=== PATIENT | male | born 1945 | race Caucasian/White ===

== ENCOUNTER 2021-07-16 20:54 | Inpatient (IN) | payer MEDICARE, SELFPAY ==
[2021-07-16 20:56] VITALS: BP 117/54; PULSE 72; RESP 18; TEMP 37.1; O2SAT 98; BMI 30.8
--- NOTE | 2021-07-16 21:12 | EDS_ITS ---
HPI HPI - Fall History of Present Illness Chief Complaint: Fall Informant: patient Occured/Mechanism Occurred: Today Pain/Injury Quality of Pain: Aching and Throbbing Current Severity: Moderate Maximum Severity: Moderate Narrative Narrative: Patient presents via EMS after a fall. Patient states he has a slight dropfoot on the left. As he was exiting a building he caught his foot on the edge of a step and fell forward down a couple steps. He believes he hit his chin but denies any injury. He states when he did that he twisted and he is complaining of right hip pain. [facility] Medical History (Updated 07/16/21 @ 23:[address] Radha [place] MD) Asthma Coronary artery disease Diabetes Hypercholesteremia Hypertension Myocardial infarction Pre-diabetes Seizures Home Medications aspirin 81 mg PO DAILY 07/16/21 [History Last Taken Unknown] atorvastatin 40 mg PO QHS 07/16/21 [History Last Taken Unknown] carvedilol 6.25 mg PO BID 07/16/21 [History Last Taken Unknown] doxazosin 4 mg PO QHS 07/16/21 [History Last Taken Unknown] finasteride 5 mg PO DAILY 07/16/21 [History Last Taken Unknown] fluocinonide 1 applic TOPICAL BID 07/16/21 [History Last Taken Unknown] fluticasone propionate [Flonase] 2 spray INTRANASAL DAILY 07/16/21 [History Last Taken Unknown] ibuprofen 200 mg PO Q6H PRN 07/16/21 [History Last Taken Unknown] isosorbide mononitrate 30 mg PO DAILY 07/16/21 [History Last Taken Unknown] loratadine 10 mg PO DAILY 07/16/21 [History Last Taken Unknown] losartan 100 mg PO DAILY 07/16/21 [History Last Taken Unknown] magnesium 400 mg PO DAILY 07/16/21 [History Last Taken Unknown] mecobal-levomefolat Ca-B6 phos [Metanx] 1 tab PO BID 07/16/21 [History Last Taken Unknown] montelukast 10 mg PO QHS 07/16/21 [History Last Taken Unknown] omeprazole 40 mg PO DAILY 07/16/21 [History Last Taken Unknown] topiramate 100 mg PO DAILY 07/16/21 [History Last Taken Unknown] turmeric 2,000 mg PO DAILY 07/16/21 [History Last Taken Unknown] Allergy/AdvReac Type Severity Reaction Status Date / Time Penicillins [PCN] Allergy Anaphylaxis Verified 07/16/21 20:56 Surgical History H/O heart artery stent S/P TURP Social History Smoking Status: Unknown if ever smoked ROS ROS ED Constitutional Constitutional ED: Denies chills or fever(s) Eyes Eyes: Denies change in vision ENT ENT ED: Denies sore throat Cardiovascular Cardiovascular: Denies chest pain Respiratory/Chest Respiratory/Chest: Denies cough or dyspnea Gastrointestinal Gastrointestinal: Denies abdominal pain, nausea or vomiting Genitourinary Genitourinary ED: Denies dysuria Musculoskeletal Musculoskeletal: Reports arthralgias; Denies back pain or neck pain Integumentary Denies rash Neurologic Neurologic: Denies headache(s) or weakness Allergic/Immunologic Allergic/Immunologic ED: Denies urticaria EXAM Physical Exam Const Vital Signs: 07/16/21 20:56 07/16/21 23:26 Temperature 98.8 F 98 F Temperature Source Temporal Temporal Pulse Rate 72 83 Respiratory Rate 18 18 Blood Pressure 117/54 L 111/63 Blood Pressure Mean 75 79 Pulse Ox 98 96 Oxygen Delivery Method Room Air Room Air Positive well nourished and well developed General Appearance ED: well developed HEENT Reports normocephalic atraumatic Eyes PERRL and EOMs intact bilaterally Neck full ROM Neck Narrative: No C-spine tenderness. Chest Wall inspection of chest normal and palpation of chest normal Resp normal respiratory effort and clear to auscultation bilaterally Cardio regular rate and regular rhythm GI non-tender Palpation: soft Back/Spine Back/Spine Narrative: No thoracic or lumbar tenderness. Extremity Extremity Narrative: Tenderness to the lateral acid of the right hip. Patient is lying on his left side. Distal pulses intact. Is able to wiggle toes and has good sensation. No tenderness at the knee. Neuro oriented x3 Sensorium / Orientation: alert Psych mental status grossly normal Skin Lesions: no lesions Rashes: no rashes MDM MDM MDM Narrative Medical decision making narrative: Patient given Dilaudid for pain control. Lab work obtained along with x-rays of the right elbow and pelvis/right hip. Lab Data Attestation: I reviewed the patient's lab results. Labs: Laboratory Results - last 24 hr 07/16/21 07/16/21 21:20 21:20 WBC 10.4 RBC 3.94 L Hgb 11.4 L Hct 35.6 L MCV 90.4 MCH 28.9 MCHC 32.0 RDW Std Deviation 43.4 RDW Coeff of Shay 13.2 Plt Count 207 MPV 10.0 Immature Gran % (Auto) 0.700 Neut % (Auto) 58.6 Lymph % (Auto) 28.3 [place] % (Auto) 8.4 Eos % (Auto) 3.3 Baso % (Auto) 0.7 Absolute Neuts (auto) 6.1 Absolute Lymphs (auto) 2.95 Nucleated RBC % 0 Sodium 141 Potassium 4.4 Chloride 113 H Carbon Dioxide 20.0 L Anion Gap 8 BUN 30 H Creatinine 1.42 H Estim Creat Clear Calc 53.06 Est GFR (MDRD) Af Amer 63 Est GFR (MDRD) Non-Af 52 L BUN/Creatinine Ratio 21.1 H Glucose 152 H Calcium 9.2 Radiography Diagnostic Testing: Clinical Impression(s) from Imaging Studies Elbow X-Ray 07/16/21 21:44 IMPRESSION: Edema at the common flexor tendon myotendinous junction which can be seen with strain. Mild degenerative changes of elbow without displaced fracture. CT could further evaluate for fracture of the elbow if there is high clinical concern for osseous injury. Electronically Signed: Mann Huang MD at 23:28 EDT Reading Location ID and State: [facility] / [place] Tel , Service support , EKG Initial EKG: Attestation: I personally reviewed and interpreted this EKG as follows: Interpretation: Sinus Rhythm (Sinus 81 with no acute ischemia.) Treatment and Re-Evaluation Narrative: Right elbow x-ray per my interpretation reveals no acute fracture. Pelvis/right hip x-ray reveals a right femoral neck fracture. Test results are discussed with the patient. His medication list is reviewed and he is not on any anticoagulants. He does take baby aspirin daily. Preoperative EKG is obtained in the emergency room and shows no acute ischemia. At this time patient is lying on his side and not willing to lie on his back for a preop chest x-ray. This will be obtained after going to the floor. I did speak with Dr. Jenaro Fountain, on-call for orthopedics. If patient can be medically cleared he will plan on surgery tomorrow. I will speak with hospitalist. Discharge Plan Dx/Rx/DC Orders Clinical Impression: Fracture of right hip Disposition Disposition: Acute Care Hospital [facility]
[2021-07-16] MEDS: 0.9% Normal Saline 1,000 ML 150 ML IV (21:24)
[2021-07-16] MEDS: HYDROmorphone 1 MG/ML Syringe 0.5 MG IV (21:24)
[2021-07-16] MEDS: Ondansetron 4 MG/2 ML Vial IV (21:24)
[2021-07-16 21:31] LABS: Absolute Lymphocyte Count 2.95 X10^3/uL (0.83-4.51); Absolute Neutrophil Count 6.1 X10^3/uL (2.0-7.7); Basophil# 0.07 X10^3/uL; Basophil% 0.7 % (0-1); Eosinophil# 0.34 X10^3/uL; Eosinophils% 3.3 % (0-5); Hematocrit 35.6 % (40-54); Hemoglobin 11.4 g/dL (13.0-16.5); Lymphocyte # 2.95 X10^3/ul (0.83-4.51); Lymphocyte % 28.3 % (19-41); Mean Corpuscular Hgb 28.9 pg (27.0-32.0); Mean Corpuscular Volume 90.4 fL (80-94); Monocyte# 0.88 X10^3/uL; Monocyte% 8.4 % (0-10); NRBC Flagged by Analyzer 0 % (0-5); Neutrophil # 6.12 X10^3/uL (2.7-7.7); Neutrophil % 58.6 % (47-70); Platelet Count 207 K/mm3 (150-450); RBC Distribution Width CV 13.2 % (11.6-14.6); RBC Distribution Width SD 43.4 fl (35.1-43.9); Red Blood Count 3.94 M/mm3 (4.6-6.2); White Blood Count 10.4 K/mm3 (4.4-11.0)
--- NOTE | 2021-07-16 21:44 | RAD_ITS ---
INDICATION: fall EXAMINATION/TECHNIQUE: X-RAY - RIGHT XR Elbow Min 3 Views COMPARISON: None. FINDINGS: SOFT TISSUES: Mild edema along the medial epicondyle. No radiopaque foreign body. BONES/JOINTS: There is no displacement of the anterior or posterior fat pads. No displaced fracture. Normal alignment. Mild diffuse joint space narrowing and osteophyte formation. No sclerotic or destructive changes observed. RAD/Elbow min 3 Views IMPRESSION: Edema at the common flexor tendon myotendinous junction which can be seen with strain. Mild degenerative changes of elbow without displaced fracture. CT could further evaluate for fracture of the elbow if there is high clinical concern for osseous injury. Electronically Signed: Mann Huang MD at 23:28 EDT ,
[2021-07-16 21:46] LABS: Anion Gap 8 (5-15); BUN 30 mg/dL (7-18); BUN/Creat Ratio 21.1 RATIO (10-20); Calcium,Total 9.2 mg/dL (8.5-10.1); Chloride 113 mmol/L (98-107); Creatinine, Serum 1.42 mg/dL (0.70-1.30); EST Glomerular Filtration Rate 52 mL/min (>60); Est Glom Filt Rate - Afr Amer 63 mL/min (>60); Estimated Creatinine Clearance 53.06 ml/min; Glucose 152 mg/dL (74-106); Potassium 4.4 mmol/L (3.5-5.1); Sodium Level 141 mmol/L (136-145)
--- NOTE | 2021-07-16 22:00 | RAD_ITS ---
ACR Level 3 findings have been noted. An addendum which confirms receipt of the report will follow. STUDY: X-RAY - PELVIS AND RIGHT HIP REASON FOR EXAM: Male, 76 years old. injury TECHNIQUE: 4 image AP pelvis with AP, frog-leg and crosstable lateral right hip views of the pelvis and hip. COMPARISON: None. FINDINGS: Right femoral neck comminuted fracture with cephalad displacement. Right Femoral head remains aligned with the acetabulumBilateral hip joint space narrowing and mild osteophyte formation, left worse than right. Imaged osseous pelvis appears grossly intact. Moderate L4-5 and L5-S1 facet arthropathy. RAD/HIP, UNI W/ Pelvis 2-3 Views IMPRESSION: Comminuted displaced right femoral neck fracture. Bilateral hip osteoarthritis. Lower lumbar facet arthropathy Electronically Signed: Mann Huang MD at 23:32 EDT ,
[2021-07-16] MEDS: HYDROmorphone 0.5 MG/0.5 ML SYRINGE IV (22:17)
--- NOTE | 2021-07-16 22:52 | EKG12_ITS ---
Test Reason : PRE-OP Blood Pressure : / mmHG Vent. Rate : 081 BPM Atrial Rate : 081 BPM P-R Int : 170 ms QRS Dur : 092 ms QT Int : 386 ms P-R-T Axes : 071 033 055 degrees QTc Int : 448 ms Normal sinus rhythm Low voltage QRS Borderline ECG Confirmed by JESSE ZUÑIGA, FAHAD ([id number]), avid editor ANNIA MARTINEZ ([id number]) on 07/20/2021 7:26:09 AM Referred By: MARLIN Confirmed By:FAHAD MOLINA MD
[2021-07-16 23:26] VITALS: BP 111/63; PULSE 83; RESP 18; TEMP 36.6; O2SAT 96
--- NOTE | 2021-07-16 23:43 | HP.PCM.HOS_ITS ---
[facility] - General General Date of Admission: 07/16/21 HPI Narrative RACHEL LOERA, is a 76 M with a significant history of seizures with last seizure was about 30 years ago; CAD with 2 stents placed in 2014; prediabetes; hypertension; hyperlipidemia and asthma who presents to emergency department with a fall. Patient lives at [place]. Patient's came with his to [place] for a class reunion. Patient has a left foot drop. And as patient was walking on a stairs his left foot got trapped and patient fell forward. Reportedly he hit his chin. Also following the fall patient had excruciating pain on his right hip. Also he had pain at his right elbow. At the emergency department patient was in so much pain that he was lying on his left side. Because of pain he was unable to lie on his back for a chest x- ray to be done. [facility] Medical History Asthma Coronary artery disease Diabetes Hypercholesteremia Hypertension Myocardial infarction Pre-diabetes Seizures Home Medications aspirin 81 mg PO DAILY 07/16/21 [History Last Taken Unknown] atorvastatin 40 mg PO QHS 07/16/21 [History Last Taken Unknown] carvedilol 6.25 mg PO BID 07/16/21 [History Last Taken Unknown] doxazosin 4 mg PO QHS 07/16/21 [History Last Taken Unknown] finasteride 5 mg PO DAILY 07/16/21 [History Last Taken Unknown] fluocinonide 1 applic TOPICAL BID 07/16/21 [History Last Taken Unknown] fluticasone propionate [Flonase] 2 spray INTRANASAL DAILY 07/16/21 [History Last Taken Unknown] ibuprofen 200 mg PO Q6H PRN 07/16/21 [History Last Taken Unknown] isosorbide mononitrate 30 mg PO DAILY 07/16/21 [History Last Taken Unknown] loratadine 10 mg PO DAILY 07/16/21 [History Last Taken Unknown] losartan 100 mg PO DAILY 07/16/21 [History Last Taken Unknown] magnesium 400 mg PO DAILY 07/16/21 [History Last Taken Unknown] mecobal-levomefolat Ca-B6 phos [Metanx] 1 tab PO BID 07/16/21 [History Last Taken Unknown] montelukast 10 mg PO QHS 07/16/21 [History Last Taken Unknown] omeprazole 40 mg PO DAILY 07/16/21 [History Last Taken Unknown] topiramate 100 mg PO DAILY 07/16/21 [History Last Taken Unknown] turmeric 2,000 mg PO DAILY 07/16/21 [History Last Taken Unknown] Allergy/AdvReac Type Severity Reaction Status Date / Time Penicillins [PCN] Allergy Anaphylaxis Verified 07/16/21 20:56 Family History Other Bowel cancer Diabetes Hypertension Kidney disease Surgical History H/O heart artery stent S/P TURP Social History Smoking Status: Former smoker ROS ROS Narrative Pertinent positives and pertinent negatives as noted in HPI. All other systems were reviewed and are negative. Vital Signs Vital Signs Vital Signs: 07/16/21 20:56 07/16/21 23:26 Temperature 98.8 F 98 F Temperature Source Temporal Temporal Pulse Rate 72 83 Respiratory Rate 18 18 Blood Pressure 117/54 L 111/63 Blood Pressure Mean 75 79 Pulse Ox 98 96 Oxygen Delivery Method Room Air Room Air Weight Weight: 108.862 kg Body Mass Index (BMI) 30.8 Physical Exam Narrative Physical exam: General: Patient lying on left side secondary to pain. Well-nourished, well- developed. Head: Normocephalic, atraumatic, no tenderness Eyes: Vision is grossly intact. EOMI ENT, no trauma, moist mucous membranes, no rhinorrhea Neck: Nontender, full range of motion CVS: Regular rate and rhythm. S1-S2 present. No murmur, gallop or rub. Respiratory : clear to auscultation bilaterally, chest wall nontender, no wheezing Abdomen: Soft, nontender, nondistended, normal bowel sounds, no masses : Deferred Back: Nontender, no CVA tenderness, no midline spinal tenderness, deformities, step-offs Extremities: Tender right hip. Patient lying on left side and left side could not be fully assessed. Skin: Abrasions on right knee. Abrasions on right elbow. Normal color, no trauma, abrasions Neuro: Alert, oriented, cranial nerves II through XII grossly intact. Psychiatry: Normal mood. Normal affect. Not depressed. Not anxious. Results Lab / Micro Data Result Diagrams: 07/16/21 21:20 07/16/21 21:20 Labs: Laboratory Results - last 24 hr 07/16/21 21:20: WBC 10.4, RBC 3.94 L, Hgb 11.4 L, Hct 35.6 L, MCV 90.4, MCH 28.9, MCHC 32.0, RDW Std Deviation 43.4, RDW Coeff of Shay 13.2, Plt Count 207, MPV 10.0, Immature Gran % (Auto) 0.700, Neut % (Auto) 58.6, Lymph % (Auto) 28.3, [place] % (Auto) 8.4, Eos % (Auto) 3.3, Baso % (Auto) 0.7, Absolute Neuts (auto) 6.1, Absolute Lymphs (auto) 2.95, Nucleated RBC % 0 07/16/21 21:20: Sodium 141, Potassium 4.4, Chloride 113 H, Carbon Dioxide 20.0 L , Anion Gap 8, BUN 30 H, Creatinine 1.42 H, Estim Creat Clear Calc 53.06, Est GFR (MDRD) Af Amer 63, Est GFR (MDRD) Non-Af 52 L, BUN/Creatinine Ratio 21.1 H, Glucose 152 H, Calcium 9.2 Radiology Impression Elbow X-Ray 07/16/21 21:44 IMPRESSION: Edema at the common flexor tendon myotendinous junction which can be seen with strain. Mild degenerative changes of elbow without displaced fracture. CT could further evaluate for fracture of the elbow if there is high clinical concern for osseous injury. Electronically Signed: Mann Huang MD at 23:28 EDT , Hip/Pelvis X-Ray 07/16/21 22:00 IMPRESSION: Comminuted displaced right femoral neck fracture. Bilateral hip osteoarthritis. Lower lumbar facet arthropathy Electronically Signed: Mann Huang MD at 23:32 EDT , Assessment & Plan Assessment/Plan (1) Fracture of right hip: QUALIFIERS: Encounter type: initial encounter Fracture type: closed Qualified Code(s): S72.001A - Fracture of unspecified part of neck of right femur, initial encounter for closed fracture PLAN: Acute comminuted displaced right femoral neck fracture Hip/pelvis x-ray was visualized and independently interpreted and agree with direct interpretation above Emergent department doctor discussed the case with Dr. Jenaro Fountain. Inpatient consult for orthopedic surgery. Morphine IV and oxycodone as needed ordered. Tylenol as needed ordered. Bowel protocol and antiemetics IV ordered. Keep n.p.o. While n.p.o. lactated Ringer's ordered. Check vitamin D level. Preoperative EKG showed sinus rhythm. ACS NSQIP surgical risk calculator with below surgical risk. Elevated creatinine Creatinine presentation was 1.42. No previous records to compare with. Unclear whether PAULO or CKD. Gentle IV hydration. Trend BMP. Anemia Hemoglobin presentation was 11.4. No previous records to compare with. Trend CBC Hypertension Blood pressure is stable Isosorbide; and losartan. Trend blood pressure and adjust blood pressure medications. DVT prophylaxis Subcutaneous Lovenox ordered. Charges/Coding Visit Charges Inpatient E&M: 09525 Init Hosp L3
[2021-07-16 23:57] VITALS: BP 111/63; PULSE 83; RESP 18; TEMP 36.6; O2SAT 96
[2021-07-17] VITALS (13 sets, daily range): BP systolic 110–143; BP diastolic 44–88; PULSE 68–89; RESP 16–18; TEMP 36.6–37.3; O2SAT 92–97; BMI 31.8; BMI 31.5
--- NOTE | 2021-07-17 | HIP_PTH ---
PATIENT: RACHEL LOERA LOC: MS3 U#:[id number] AGE/SX: 76/M ROOM: HI319 RE07/16/[address]: Dr. Jaci Avitia MD : 1945 BED: 1 DIS: 07/20/2021 SPEC #: [id number] RECD: 07/20/21 09:51 STATUS: ANDI REMagno #: [id number] CLYDE: 07/17/21 00:[address]: Jenaro Fountain DEPT: SURGICAL PATHOLOGY RECD BY: Raúl Moreno ENTERED: 07/20/21 09:51 SP TYPE: TOTAL HIP OTHR DR: DO Dr. Tim Cox MD Dr. Kathryn Lee, DO Dr. Nana Yaa Koram, MD Dr. Rodney Miller, MD No Primary Care Phys Tissues: Hip, NOS Procedures: Decalcification bone/plaque Surgery Specimen Level IV Comments: @ Ordering doctor for DEC edited from to [email or web address] Toni TADEO at 07/20/21 1016 @ Ordering doctor for SUIV edited from to [email or web address] Muñoz by SHWETHA at 07/20/21 1016 @ Submitting doctor edited from to DR.[email or web address] Muñoz by SHWETHA at 07/20/21 1016 HEADER OPERATION: Right hip hemiarthroplasty PRE-OP DIAGNOSIS: Fracture of right hip TISSUE SUBMITTED: Bone and soft tissue right hip MICROSCOPIC DIAGNOSIS Right hip bone and soft tissue, hemiarthroplasty: Femoral head and detached pieces of bone with focal area of hemorrhage, clinically fractured right hip. Focal changes consistent with degenerative osteoarthritis. KUNAL:rebecca 07/23/2021 MICROSCOPIC DESCRIPTION Slides are reviewed. GROSS DESCRIPTION Received is one container labeled with the patient's name and designated bone and soft tissue right hip. The specimen consists of a guerin femoral head measuring 4.5 x 4.5 x 4 cm. The articular surface shows focal area of erosion. Resection margin is irregular and hemorrhagic. Also present in the specimen container are multiple detached pieces of bone measuring in aggregate 6 x 5.5 x 2 cm. Chief Compressor Station Engineer sections are submitted in three cassettes after decalcification as follows: 1 - detached pieces of tissue, 2?& 3 - femoral head. / KUNAL:rebecca 07/20/2021 TC:5 CPT: 33762, 44718
[2021-07-17] MEDS: Lactated Ringers 1,000 ML 60 ML IV ×3 (01:21→20:25)
[2021-07-17] MEDS: Morphine 2 MG/ML Syringe IV ×4 (03:07→14:46)
[2021-07-17 04:46] LABS: Absolute Lymphocyte Count 1.56 X10^3/uL (0.83-4.51); Absolute Neutrophil Count 10.4 X10^3/uL (2.0-7.7); Basophil# 0.05 X10^3/uL; Basophil% 0.4 % (0-1); Eosinophils% 1.5 % (0-5); Hematocrit 34.9 % (40-54); Hemoglobin 11.2 g/dL (13.0-16.5); Lymphocyte # 1.56 X10^3/ul (0.83-4.51); Lymphocyte % 11.7 % (19-41); Mean Corp Hgb Conc 32.1 g/dL (32-36); Mean Corpuscular Hgb 28.7 pg (27.0-32.0); Mean Corpuscular Volume 89.5 fL (80-94); Mean Platelet Vol. 10.3 fl (6.2-12.0); Monocyte# 1.02 X10^3/uL; Monocyte% 7.6 % (0-10); NRBC Flagged by Analyzer 0 % (0-5); Neutrophil # 10.44 X10^3/uL (2.7-7.7); Neutrophil % 78.2 % (47-70); Platelet Count 198 K/mm3 (150-450); RBC Distribution Width CV 13.3 % (11.6-14.6); RBC Distribution Width SD 43.4 fl (35.1-43.9); White Blood Count 13.4 K/mm3 (4.4-11.0)
[2021-07-17 05:07] LABS: Anion Gap 5 (5-15); BUN 26 mg/dL (7-18); BUN/Creat Ratio 21.7 RATIO (10-20); Calcium,Total 8.8 mg/dL (8.5-10.1); Chloride 114 mmol/L (98-107); EST Glomerular Filtration Rate 63 mL/min (>60); Est Glom Filt Rate - Afr Amer 76 mL/min (>60); Estimated Creatinine Clearance 62.79 ml/min; Glucose 140 mg/dL (74-106); Potassium 4.2 mmol/L (3.5-5.1); Sodium Level 142 mmol/L (136-145)
[2021-07-17 05:12] LABS: Vitamin D,25 Hydroxy 17.4 ng/mL
--- NOTE | 2021-07-17 07:40 | PN.HOSP_ITS ---
Subjective Subjective Feels well. No chest pain. Tells me from his cardiac standpoint he has been seeing a senior biostatistician twice yearly and was recently released at a point where he can follow-up with his senior biostatistician annually now. Patient has been getting around well doing well at home without any chest pain or shortness of breath. Objective Data Objective Data Vital Signs: Vital Signs Temp Pulse Resp BP Pulse Ox 36.7 C 84 18 137/62 H 95 07/17/21 01:15 07/17/21 01:15 07/17/21 01:15 07/17/21 01:15 07/17/21 01:15 Oxygen Delivery Method Room Air Weight: 112.3 kg Body Mass Index (BMI) 31.8 Intake & Output: Intake and Output for Last 24 Hours 07/15/21 07/16/21 07/17/21 23:59 23:59 23:59 Intake Total 595 / 595 Balance 595 / 595 Lab / Micro Data Result Diagrams: 07/17/21 04:10 07/17/21 04:10 Labs: Laboratory Results - last 24 hr 07/16/21 21:20: WBC 10.4, RBC 3.94 L, Hgb 11.4 L, Hct 35.6 L, MCV 90.4, MCH 28.9, MCHC 32.0, RDW Std Deviation 43.4, RDW Coeff of Shay 13.2, Plt Count 207, MPV 10.0, Immature Gran % (Auto) 0.700, Neut % (Auto) 58.6, Lymph % (Auto) 28.3, [place] % (Auto) 8.4, Eos % (Auto) 3.3, Baso % (Auto) 0.7, Absolute Neuts (auto) 6.1, Absolute Lymphs (auto) 2.95, Nucleated RBC % 0 07/16/21 21:20: Sodium 141, Potassium 4.4, Chloride 113 H, Carbon Dioxide 20.0 L , Anion Gap 8, BUN 30 H, Creatinine 1.42 H, Estim Creat Clear Calc 53.06, Est GFR (MDRD) Af Amer 63, Est GFR (MDRD) Non-Af 52 L, BUN/Creatinine Ratio 21.1 H, Glucose 152 H, Calcium 9.2 07/17/21 04:10: WBC 13.4 H, RBC 3.90 L, Hgb 11.2 L, Hct 34.9 L, MCV 89.5, MCH 28.7, MCHC 32.1, RDW Std Deviation 43.4, RDW Coeff of Shay 13.3, Plt Count 198, MPV 10.3, Immature Gran % (Auto) 0.600, Neut % (Auto) 78.2 H, Lymph % (Auto) 11.7 L, [place] % (Auto) 7.6, Eos % (Auto) 1.5, Baso % (Auto) 0.4, Absolute Neuts (auto) 10.4 H, Absolute Lymphs (auto) 1.56, Nucleated RBC % 0 07/17/21 04:10: Sodium 142, Potassium 4.2, Chloride 114 H, Carbon Dioxide 23.0, Anion Gap 5, BUN 26 H, Creatinine 1.20, Estim Creat Clear Calc 62.79, Est GFR (MDRD) Af Amer 76, Est GFR (MDRD) Non-Af 63, BUN/Creatinine Ratio 21.7 H, Glucose 140 H, Calcium 8.8 07/17/21 04:10: Vitamin D 25-Hydroxy 17.4 07/17/21 04:10: Blood Type O POSITIVE, Antibody Screen NEGATIVE Radiography Diagnostic Testing: Radiology Impression Elbow X-Ray 07/16/21 21:44 IMPRESSION: Edema at the common flexor tendon myotendinous junction which can be seen with strain. Mild degenerative changes of elbow without displaced fracture. CT could further evaluate for fracture of the elbow if there is high clinical concern for osseous injury. Electronically Signed: Mann Huang MD at 23:28 EDT , Hip/Pelvis X-Ray 07/16/21 22:00 IMPRESSION: Comminuted displaced right femoral neck fracture. Bilateral hip osteoarthritis. Lower lumbar facet arthropathy Electronically Signed: Mann uHang MD at 23:32 EDT , ADDENDUM: 07/16/21 2344 IMPRESSION: Comminuted displaced right femoral neck fracture. Bilateral hip osteoarthritis. Lower lumbar facet arthropathy N.B. : LAVELLE Huitron, confirmed on 07/16/2021 23:37:38 (ET) that the healthcare facility has received the radiology report. Electronically Signed: Mann Huang MD at 23:32 EDT Reading Location ID and State: [facility] / [place] Tel , Service support , Physical Exam Const Constitutional Narrative: Lying on his left side. Resp normal respiratory effort, no retractions, no use of accessory muscles and clear to auscultation bilaterally Cardio regular rate, regular rhythm, S1 normal heart sound and S2 normal heart sound GI normal to inspection, nondistended, normoactive bowel sounds, soft to palpation, non-tender and non-distended Assessment & Plan Assessment/Plan (1) Fracture of right hip: QUALIFIERS: Encounter type: initial encounter Fracture type: closed Qualified Code(s): S72.001A - Fracture of unspecified part of neck of right femur, initial encounter for closed fracture PLAN: 1. Acute comminuted displaced right femoral neck fracture * Hip/pelvis x-ray was visualized and independently interpreted and agree with direct interpretation above * Emergent department doctor discussed the case with Dr. Jenaro Fountain. Inpatient consult for orthopedic surgery. * Morphine IV and oxycodone as needed ordered. Tylenol as needed ordered. * Bowel protocol and antiemetics IV ordered. Keep n.p.o. * While n.p.o. lactated Ringer's ordered. * Check vitamin D level. Preoperative EKG showed sinus rhythm. * ACS NSQIP surgical risk calculator with below surgical risk. 2. Elevated creatinine * Cr improved 3. Anemia * Hemoglobin presentation was 11.4. * No previous records to compare with. Trend CBC 4. Hypertension * Blood pressure is stable * Isosorbide; and losartan. * Trend blood pressure and adjust blood pressure medications. 5. CAD * DW Dr. Hernadez in anesthesia. He will need further information about his cardiac history before he can proceed with surgery * Information requested from [facility] in [place]. Cardiac catheterization report from 09/21/2015 where patient had a Trilling stent placed to the left anterior descending artery. Unfortunately, that is the all of the information that was provided but patient with his present and states that he has been diligent in following up with his senior biostatistician and has been stable from a cardiology standpoint to be seen annually instead of twice yearly. I do agree with the admitting hospitalist that I feel the patient is medically stable and optimized to proceed with surgery. I did request additional information from the hospital but have yet to receive that. Nonetheless, I feel the patient is stable from medical standpoint to proceed with surgery. If anesthesia feels additional work-up is necessary from their standpoint, I will defer though I do not feel it is necessary from a medical standpoint. * Resume aspirin after surgery. * Continue with carvedilol isosorbide, losartan 6. DVT prophylaxis * Subcutaneous Lovenox ordered. Greater than 35 minutes of which greater than 50% of time was discussed with patient at bedside about his cardiac history and his work-up and also reviewing the medical records from the outside hospital for the cardiac catheterization report. Charges/Coding Visit Charges Inpatient E&M: 51188 [facility] L3
--- NOTE | 2021-07-17 09:45 | CASEMGMT ---
RN SHAHNAZ Face to Face with patient for initial transition planning/care coordination assessment. RN CM introduced self and role at [facility]. Patient lying in bed, alert and oriented, at bedside. Patient willing to participate in assessment and is able to answer all questions appropriately. Care providers, pharmacy, and demographics verified. Patient wishes to discharge home, will monitor progress with therapy to determine discharge disposition, possible SNF. Discussed if patient is able to discharge home to follow-up PCP as soon as able to get setup with outpatient therapy. and patient voiced understanding. Patient states he has no further needs or concerns at this time. CM to follow for discharge planning needs that may arise. PCP: Toño Jmienez in [place] [phone] Specialists: none Preferred Pharmacy: [facility] retail Insurance: [facility] Prescription Benefit: yes Living Will/HPOA: none LNOK: Living Arrangements: Patient lives with in a 2 story home with access to bed and bath on first floor. Patient was independent at home and ambulating stairs prior to fall. Transportation: self, DME/HHC: Patient states he has crutches at home. Patient will need walker at discharge if goes home. List reviewed with patient and would like [employer]. No previous HHC or SNF Disposition Plan: TBD by progress with therapy: home with outpatient therapy vs SNF. Casie WOLF, RN, CM
[2021-07-17] MEDS: Carvedilol 6.25 MG Tablet PO ×2 (11:04→20:25)
[2021-07-17] MEDS: 0.9% Saline Lock 10 ML Syringe IV (11:04)
--- NOTE | 2021-07-17 13:21 | CASEMGMT ---
YEIMI CHRISTIE NOTE: If pt discharges to home, will need a walker prior to discharge. Script obtained/signed by Dr Moore and placed on chart w/Green sheet w/instructions. If pt goes to SNF @ D/C, will not need a walker @ d/c, as walker will be provided @ SNF. Cathy WOLF RN CM
--- NOTE | 2021-07-17 13:55 | PCM.CONS.C ---
Documented by User: Kendra PERES PA 07/17/21 14:06 Assessment & Plan Assessment/Plan (1) Fracture of right hip: QUALIFIERS: Encounter type: initial encounter Fracture type: closed Qualified Code(s): S72.001A - Fracture of unspecified part of neck of right femur, initial encounter for closed fracture (2) Coronary artery disease: PLAN: Pt does not have any acute symptoms of CAD. He does follow routinely with his hadoop architect. He has been on maximum medical therapy. Echo was read bedside, there is no acute findings. EF is preserved. Feel from a cardiac standpoint okay to proceed with surgery, do not feel that any additional cardiac testing needs done. This was reviewed with Dr. Villatoro HPI Consult Data Date of Consult: 07/17/21 HPI Narrative HPI Narrative: RACHEL LOERA, is a 76 M who presented to the ER for a mechanical fall and fractured his hip. We were asked to consult for cardiac clearance for surgery for his rt hip fracture. He has a history of coronary artery disease with 2 stents placed in 2014, hypertension, hyperlipidemia, prediabetic and asthma. He also has a remote history of seizures. Patient does not have any cardiac symptoms. He does follow routinely with his hadoop architect. At times he does have some atypical chest discomfort but it is not concerning. Does not have any shortness of breath. He does not have any heaviness or tightness. He does not have any palpitations. [facility] Medical History (Updated 07/17/21 @ 14:02 by Kendra PERES PA) Asthma Coronary artery disease Diabetes Hypercholesteremia Hypertension Myocardial infarction Pre-diabetes Seizures Home Medications aspirin 81 mg PO DAILY 07/16/21 [History Last Taken Unknown] atorvastatin 40 mg PO QHS 07/16/21 [History Last Taken Unknown] carvedilol 6.25 mg PO BID 07/16/21 [History Last Taken Unknown] doxazosin 4 mg PO QHS 07/16/21 [History Last Taken Unknown] finasteride 5 mg PO DAILY 07/16/21 [History Last Taken Unknown] fluocinonide 1 applic TOPICAL BID 07/16/21 [History Last Taken Unknown] fluticasone propionate [Flonase] 2 spray INTRANASAL DAILY 07/16/21 [History Last Taken Unknown] ibuprofen 200 mg PO Q6H PRN 07/16/21 [History Last Taken Unknown] isosorbide mononitrate 30 mg PO DAILY 07/16/21 [History Last Taken Unknown] loratadine 10 mg PO DAILY 07/16/21 [History Last Taken Unknown] losartan 100 mg PO DAILY 07/16/21 [History Last Taken Unknown] magnesium 400 mg PO DAILY 07/16/21 [History Last Taken Unknown] mecobal-levomefolat Ca-B6 phos [Metanx] 1 tab PO BID 07/16/21 [History Last Taken Unknown] montelukast 10 mg PO QHS 07/16/21 [History Last Taken Unknown] omeprazole 40 mg PO DAILY 07/16/21 [History Last Taken Unknown] topiramate 100 mg PO DAILY 07/16/21 [History Last Taken Unknown] turmeric 2,000 mg PO DAILY 07/16/21 [History Last Taken Unknown] Allergy/AdvReac Type Severity Reaction Status Date / Time Penicillins [PCN] Allergy Anaphylaxis Verified 07/17/21 14:07 Family History Other Bowel cancer Diabetes Hypertension Kidney disease Surgical History H/O heart artery stent S/P TURP Social History Smoking Status: Former smoker ROS Constitutional Constitutional: Denies change in weight, chills, fatigue, frequent falls, headache(s) or lethargy Eyes Eyes: Denies acute decrease in peripheral vision, blurry vision or change in vision ENT HEENT: Denies dizziness, dry mouth, epistaxis, headache(s), tinnitus or vertigo Cardiovascular Cardiovascular: Denies chest pain at rest, chest pain with activity, claudication, dyspnea at rest, dyspnea on exertion, edema, irregular heart rhythm, lightheadedness, orthopnea, orthostatic symptoms, palpitations or pedal edema Respiratory/Chest Respiratory/Chest: Denies cough, dyspnea, dyspnea on exertion, tachypnea or wheezing Gastrointestinal Gastrointestinal: Denies abdominal pain, bloating, coffee ground emesis, diarrhea, heartburn, hematemesis, hematochezia, melena or nausea Genitourinary Genitourinary: Denies hematuria Musculoskeletal Musculoskeletal: Denies myalgias, numbness or tingling Neurologic Neurologic: Denies abnormal gait, abnormal speech, memory loss, paresthesias or weakness Physical Exam Const alert, oriented x3, no apparent distress and healthy appearing HEENT normocephalic, head/scalp atraumatic, hearing grossly normal bilaterally, external ears normal, external nose normal and moist oral mucous membranes Eyes PERRL, EOMs intact bilaterally, conjunctivae normal and no scleral icterus Neck no lymphadenopathy, supple and no JVD Resp Auscultation: clear to auscultation bilaterally Cardio regular rate, regular rhythm, S1 normal heart sound, S2 normal heart sound, no rub, no gallops, no clicks, no JVD and peripheral pulses 2+ throughout Heart Sounds: murmur systolic II/ soft mid GI normal to inspection, nondistended, normoactive bowel sounds, soft to palpation, non-tender and non-distended Extremity normal to inspection, normal capillary refill, no clubbing, cyanosis or edema and no pedal edema Neuro oriented x3, CN's II-XII intact bilaterally, moves all extremities and no focal motor deficits Psych cooperative and affect normal Risk Stratification Risk Stratification Applicable: No Charges/Coding Multi Select Codes Visit Charges Office Visit/Consults: 22219 IP Consult L3 Objective Data Vital Signs: Vital Signs Temp Pulse Resp BP Pulse Ox 98.8 F 72 16 122/61 H 93 07/17/21 11:02 07/17/21 11:02 07/17/21 11:02 07/17/21 11:02 07/17/21 11:02 Oxygen Delivery Method Room Air Weight: 247 lb 9.266 oz Body Mass Index (BMI) 31.8 Intake & Output: Intake and Output for Last 24 Hours 07/15/21 07/16/21 07/17/21 23:59 23:59 23:59 Intake Total 625 / 625 Balance 625 / 625 Lab / Micro Data Result Diagrams: 07/17/21 04:10 07/17/21 04:10 Labs: Laboratory Results - last 24 hr 07/16/21 21:20: WBC 10.4, RBC 3.94 L, Hgb 11.4 L, Hct 35.6 L, MCV 90.4, MCH 28.9, MCHC 32.0, RDW Std Deviation 43.4, RDW Coeff of Shay 13.2, Plt Count 207, MPV 10.0, Immature Gran % (Auto) 0.700, Neut % (Auto) 58.6, Lymph % (Auto) 28.3, [place] % (Auto) 8.4, Eos % (Auto) 3.3, Baso % (Auto) 0.7, Absolute Neuts (auto) 6.1, Absolute Lymphs (auto) 2.95, Nucleated RBC % 0 07/16/21 21:20: Sodium 141, Potassium 4.4, Chloride 113 H, Carbon Dioxide 20.0 L, Anion Gap 8, BUN 30 H, Creatinine 1.42 H, Estim Creat Clear Calc 53.06, Est GFR (MDRD) Af Amer 63, Est GFR (MDRD) Non-Af 52 L, BUN/Creatinine Ratio 21.1 H, Glucose 152 H, Calcium 9.2 07/17/21 04:10: WBC 13.4 H, RBC 3.90 L, Hgb 11.2 L, Hct 34.9 L, MCV 89.5, MCH 28.7, MCHC 32.1, RDW Std Deviation 43.4, RDW Coeff of Shay 13.3, Plt Count 198, MPV 10.3, Immature Gran % (Auto) 0.600, Neut % (Auto) 78.2 H, Lymph % (Auto) 11.7 L, [place] % (Auto) 7.6, Eos % (Auto) 1.5, Baso % (Auto) 0.4, Absolute Neuts (auto) 10.4 H, Absolute Lymphs (auto) 1.56, Nucleated RBC % 0 07/17/21 04:10: Sodium 142, Potassium 4.2, Chloride 114 H, Carbon Dioxide 23.0, Anion Gap 5, BUN 26 H, Creatinine 1.20, Estim Creat Clear Calc 62.79, Est GFR (MDRD) Af Amer 76, Est GFR (MDRD) Non-Af 63, BUN/Creatinine Ratio 21.7 H, Glucose 140 H, Calcium 8.8 07/17/21 04:10: Vitamin D 25-Hydroxy 17.4 07/17/21 04:10: Blood Type O POSITIVE, Antibody Screen NEGATIVE Cardiology Labs/Tests 07/16/21 21:20: WBC 10.4, RBC 3.94 L, Hgb 11.4 L, Hct 35.6 L, MCV 90.4, MCH 28.9, MCHC 32.0, Plt Count 207, MPV 10.0, Immature Gran % (Auto) 0.700, Neut % (Auto) 58.6, Lymph % (Auto) 28.3, [place] % (Auto) 8.4, Eos % (Auto) 3.3, Baso % (Auto) 0.7, Absolute Neuts (auto) 6.1, Nucleated RBC % 0 07/16/21 21:20: Sodium 141, Potassium 4.4, Chloride 113 H, Carbon Dioxide 20.0 L, Anion Gap 8, BUN 30 H, Creatinine 1.42 H, Est GFR (MDRD) Af Amer 63, Est GFR (MDRD) Non-Af 52 L, BUN/Creatinine Ratio 21.1 H, Glucose 152 H, Calcium 9.2 07/17/21 04:10: WBC 13.4 H, RBC 3.90 L, Hgb 11.2 L, Hct 34.9 L, MCV 89.5, MCH 28.7, MCHC 32.1, Plt Count 198, MPV 10.3, Immature Gran % (Auto) 0.600, Neut % (Auto) 78.2 H, Lymph % (Auto) 11.7 L, [place] % (Auto) 7.6, Eos % (Auto) 1.5, Baso % (Auto) 0.4, Absolute Neuts (auto) 10.4 H, Nucleated RBC % 0 07/17/21 04:10: Sodium 142, Potassium 4.2, Chloride 114 H, Carbon Dioxide 23.0, Anion Gap 5, BUN 26 H, Creatinine 1.20, Est GFR (MDRD) Af Amer 76, Est GFR (MDRD) Non-Af 63, BUN/Creatinine Ratio 21.7 H, Glucose 140 H, Calcium 8.8 EKG: SR Radiography Diagnostic Testing: Radiology Impression Elbow X-Ray 07/16/21 21:44 IMPRESSION: Edema at the common flexor tendon myotendinous junction which can be seen with strain. Mild degenerative changes of elbow without displaced fracture. CT could further evaluate for fracture of the elbow if there is high clinical concern for osseous injury. Electronically Signed: Mann Huang MD at 23:28 EDT , Hip/Pelvis X-Ray 07/16/21 22:00 IMPRESSION: Comminuted displaced right femoral neck fracture. Bilateral hip osteoarthritis. Lower lumbar facet arthropathy Electronically Signed: Mann Huang MD at 23:32 EDT Reading Location ID and State: [facility] [place] Tel , Service support , ADDENDUM: 07/16/21 2344 IMPRESSION: Comminuted displaced right femoral neck fracture. Bilateral hip osteoarthritis. Lower lumbar facet arthropathy N.B. : LAVELLE Huitron, confirmed on 07/16/2021 23:37:38 (ET) that the healthcare facility has received the radiology report. Electronically Signed: Mann Huang MD at 23:32 EDT Reading Location ID and State: [facility] / [place] Tel , Service support , Documented by User: Dr. Jhon Villatoro MD 07/17/21 17:39 Assessment & Plan Assessment/Plan (1) Fracture of right hip: QUALIFIERS: Encounter type: initial encounter Fracture type: closed Qualified Code(s): S72.001A - Fracture of unspecified part of neck of right femur, initial encounter for closed fracture PLAN: Patient seen and evaluated along with the nursing staff Has a history of CAD with prior myocardial infarction in 2015 Underwent PCI and stent And he regularly follows with his primary hadoop architect in [place] Evidently patient tripped over with mechanical fall and sustained right hip fracture Cardiac evaluation with EKG no significant ST?T abnormalities And echocardiogram showed preserved LV systolic function Patient is cleared to undergo right hip surgery with intermediate risk for cardiopulmonary event Due to history of prior KS and PCI and stent x2 To continue cardiac medication post surgery HPI Consult Data Date of Consult: 07/17/21 [facility] Medical History (Updated 07/17/21 @ 14:02 by Kendra PERES, PA) Asthma Coronary artery disease Diabetes Hypercholesteremia Hypertension Myocardial infarction Pre-diabetes Seizures Home Medications aspirin 81 mg PO DAILY 07/16/21 [History Last Taken Unknown] atorvastatin 40 mg PO QHS 07/16/21 [History Last Taken Unknown] carvedilol 6.25 mg PO BID 07/16/21 [History Last Taken Unknown] doxazosin 4 mg PO QHS 07/16/21 [History Last Taken Unknown] finasteride 5 mg PO DAILY 07/16/21 [History Last Taken Unknown] fluocinonide 1 applic TOPICAL BID 07/16/21 [History Last Taken Unknown] fluticasone propionate [Flonase] 2 spray INTRANASAL DAILY 07/16/21 [History Last Taken Unknown] ibuprofen 200 mg PO Q6H PRN 07/16/21 [History Last Taken Unknown] isosorbide mononitrate 30 mg PO DAILY 07/16/21 [History Last Taken Unknown] loratadine 10 mg PO DAILY 07/16/21 [History Last Taken Unknown] losartan 100 mg PO DAILY 07/16/21 [History Last Taken Unknown] magnesium 400 mg PO DAILY 07/16/21 [History Last Taken Unknown] mecobal-levomefolat Ca-B6 phos [Metanx] 1 tab PO BID 07/16/21 [History Last Taken Unknown] montelukast 10 mg PO QHS 07/16/21 [History Last Taken Unknown] omeprazole 40 mg PO DAILY 07/16/21 [History Last Taken Unknown] topiramate 100 mg PO DAILY 07/16/21 [History Last Taken Unknown] turmeric 2,000 mg PO DAILY 07/16/21 [History Last Taken Unknown] Allergy/AdvReac Type Severity Reaction Status Date / Time Penicillins [PCN] Allergy Anaphylaxis Verified 07/17/21 14:07 Family History Other Bowel cancer Diabetes Hypertension Kidney disease Surgical History H/O heart artery stent S/P TURP Social History Smoking Status: Former smoker Lab / Micro Data Result Diagrams: 07/17/21 04:10 07/17/21 04:10
[2021-07-17 13:59] LABS: Hemoglobin A1c 6.5 % (3.8-5.6)
--- NOTE | 2021-07-17 14:26 | ECHOL_ITS ---
Reason For Study: Pre-op clearance Procedure This was a limited 2D transthoracic echocardiogram. Exam performed portable in patient room. Left Ventricle Normal left ventricle. The estimated ejection fraction is 55-60 %. Right Ventricle Normal right ventricle. Normal systolic function. Atria Normal left atrium. Normal right atrium. Mitral Valve The mitral valve is structurally normal. No prolapse or stenosis seen. Tricuspid Valve Normal tricuspid valve. Aortic Valve Limited study for LV function evaluation. Pulmonic Valve The pulmonic valve is not well visualized. Pericardium/Pleural No pericardial effusion. MMode/2D Measurements & Calculations LVIDd: 4.5 cm IVSd: 1.3 cm Ao root diam: 3.4 cm LVIDs: 2.5 cm LVPWd: 1.1 cm FS: 43.4 % LA dimension(2D): 3.6 cm ECHO/Echo, Limited Study Interpretation Summary The estimated ejection fraction is 55-60 %. Normal LV systolic function Limited study for LV function evaluation Ordering Physician: Jhon Villatoro Performed By: Akila Owens RDCS
--- NOTE | 2021-07-17 15:18 | PCM.CONS.GEN ---
Assessment & Plan Assessment/Plan (1) Fracture of right hip: QUALIFIERS: Encounter type: initial encounter Fracture type: closed Qualified Code(s): S72.001A - Fracture of unspecified part of neck of right femur, initial encounter for closed fracture PLAN: His diagnosis and treatment options regarding his right hip fracture was discussed with them at length. Surgery was recommended. Risk of surgery including but not limited to from operative or postoperative complications. Risk of anesthetic complications such as heart attacks, strokes, seizures, or . Risk of infections. Risk of damage to nerves arteries tendons. Risk of inadvertent fractures or dislocations. Risk of bone or wound healing complications. Possibility of nonunion malunion pain stiffness weakness. Possible need for further surgery such as hardware removal. Risk of DVT PE and other potential complications could lead to or disability explained. No guarantees were stated or implied. All of their questions were answered. Appropriate informed consent was obtained and signed for surgical intervention. They understand increased risk related to COVID-19 pandemic Possibility of total hip replacement versus hemiarthroplasty discussed. After explaining options it was decided to proceed with hemiarthroplasty, bipolar, cemented. He does plan to follow-up with an orthopedic surgeon in [place]. We will plan to use Ancef for perioperative antibiotic after discussion with the anesthesia team. Test dose will be given. He will continue on the medical service and hopefully be discharged to home in the next day or 2. We will plan to use aspirin 81 mg twice a day for DVT prevention. HPI Consult Data Date of Consult: 07/17/21 HPI Narrative HPI Narrative: RACHEL LOERA, is a 76 M who presents after sustaining a fall on July 16, 2021. He denies head injury or loss of consciousness. He denies dizziness. He states his right hip felt fine before. He does not usually use a cane. He is in town from [place]. He plans to return to [place]. Seen with his present. Patient states he has taken Keflex in the past without allergic symptoms, after his problem with penicillin. He complains of some mild left foot weakness when walking. He thinks he may have a bit of a left foot drop. He has had back problems. [facility] Medical History (Updated 07/17/21 @ 14:02 by Kendra PERES, PA) Asthma Coronary artery disease Diabetes Hypercholesteremia Hypertension Myocardial infarction Pre-diabetes Seizures Home Medications aspirin 81 mg PO DAILY 07/16/21 [History Last Taken Unknown] atorvastatin 40 mg PO QHS 07/16/21 [History Last Taken Unknown] carvedilol 6.25 mg PO BID 07/16/21 [History Last Taken Unknown] doxazosin 4 mg PO QHS 07/16/21 [History Last Taken Unknown] finasteride 5 mg PO DAILY 07/16/21 [History Last Taken Unknown] fluocinonide 1 applic TOPICAL BID 07/16/21 [History Last Taken Unknown] fluticasone propionate [Flonase] 2 spray INTRANASAL DAILY 07/16/21 [History Last Taken Unknown] ibuprofen 200 mg PO Q6H PRN 07/16/21 [History Last Taken Unknown] isosorbide mononitrate 30 mg PO DAILY 07/16/21 [History Last Taken Unknown] loratadine 10 mg PO DAILY 07/16/21 [History Last Taken Unknown] losartan 100 mg PO DAILY 07/16/21 [History Last Taken Unknown] magnesium 400 mg PO DAILY 07/16/21 [History Last Taken Unknown] mecobal-levomefolat Ca-B6 phos [Metanx] 1 tab PO BID 07/16/21 [History Last Taken Unknown] montelukast 10 mg PO QHS 07/16/21 [History Last Taken Unknown] omeprazole 40 mg PO DAILY 07/16/21 [History Last Taken Unknown] topiramate 100 mg PO DAILY 07/16/21 [History Last Taken Unknown] turmeric 2,000 mg PO DAILY 07/16/21 [History Last Taken Unknown] Allergy/AdvReac Type Severity Reaction Status Date / Time Penicillins [PCN] Allergy Anaphylaxis Verified 07/17/21 14:07 Family History Other Bowel cancer Diabetes Hypertension Kidney disease Surgical History H/O heart artery stent S/P TURP Social History Smoking Status: Former smoker ROS ROS Narrative Patient denies problems with eyes ears nose or throat heart or lungs bowel or bladder. He normally ambulates without a cane. He lives at home with his . Review of Systems ROS Unobtainable: due to encephalopathy Physical Exam Narrative Right hip has shortening and external rotation. Right hip has pain on palpation. Distal pulses and sensation are intact. No obvious foot drop bilaterally. No calf pain or swelling bilaterally. Negative Homans' sign. SCDs are on. X-rays AP pelvis AP and lateral right hip shows a displaced right femoral neck fracture without significant pre-existing hip arthritis. No obvious lytic or blastic lesions. Laboratory work and vital signs reviewed. According to his most recent hemoglobin A1c was 6.5 Lab / Micro Data Result Diagrams: 07/17/21 04:10 07/17/21 04:10 Labs: Laboratory Results - last 24 hr 07/16/21 21:20: WBC 10.4, RBC 3.94 L, Hgb 11.4 L, Hct 35.6 L, MCV 90.4, MCH 28.9, MCHC 32.0, RDW Std Deviation 43.4, RDW Coeff of Shay 13.2, Plt Count 207, MPV 10.0, Immature Gran % (Auto) 0.700, Neut % (Auto) 58.6, Lymph % (Auto) 28.3, [place] % (Auto) 8.4, Eos % (Auto) 3.3, Baso % (Auto) 0.7, Absolute Neuts (auto) 6.1, Absolute Lymphs (auto) 2.95, Nucleated RBC % 0 07/16/21 21:20: Sodium 141, Potassium 4.4, Chloride 113 H, Carbon Dioxide 20.0 L, Anion Gap 8, BUN 30 H, Creatinine 1.42 H, Estim Creat Clear Calc 53.06, Est GFR (MDRD) Af Amer 63, Est GFR (MDRD) Non-Af 52 L, BUN/Creatinine Ratio 21.1 H, Glucose 152 H, Calcium 9.2 07/17/21 04:10: WBC 13.4 H, RBC 3.90 L, Hgb 11.2 L, Hct 34.9 L, MCV 89.5, MCH 28.7, MCHC 32.1, RDW Std Deviation 43.4, RDW Coeff of Shay 13.3, Plt Count 198, MPV 10.3, Immature Gran % (Auto) 0.600, Neut % (Auto) 78.2 H, Lymph % (Auto) 11.7 L, [place] % (Auto) 7.6, Eos % (Auto) 1.5, Baso % (Auto) 0.4, Absolute Neuts (auto) 10.4 H, Absolute Lymphs (auto) 1.56, Nucleated RBC % 0 07/17/21 04:10: Sodium 142, Potassium 4.2, Chloride 114 H, Carbon Dioxide 23.0, Anion Gap 5, BUN 26 H, Creatinine 1.20, Estim Creat Clear Calc 62.79, Est GFR (MDRD) Af Amer 76, Est GFR (MDRD) Non-Af 63, BUN/Creatinine Ratio 21.7 H, Glucose 140 H, Calcium 8.8 07/17/21 04:10: Vitamin D 25-Hydroxy 17.4 07/17/21 04:10: Blood Type O POSITIVE, Antibody Screen NEGATIVE 07/17/21 04:10: Hemoglobin A1c 6.5 H Radiology Impression Elbow X-Ray 07/16/21 21:44 IMPRESSION: Edema at the common flexor tendon myotendinous junction which can be seen with strain. Mild degenerative changes of elbow without displaced fracture. CT could further evaluate for fracture of the elbow if there is high clinical concern for osseous injury. Electronically Signed: Mann Huang MD at 23:28 EDT , Hip/Pelvis X-Ray 07/16/21 22:00 IMPRESSION: Comminuted displaced right femoral neck fracture. Bilateral hip osteoarthritis. Lower lumbar facet arthropathy Electronically Signed: Mann Huang MD at 23:32 EDT , ADDENDUM: 07/16/21 2344 IMPRESSION: Comminuted displaced right femoral neck fracture. Bilateral hip osteoarthritis. Lower lumbar facet arthropathy N.B. : LAVELLE Huitron, confirmed on 07/16/2021 23:37:38 (ET) that the healthcare facility has received the radiology report. Electronically Signed: Mann Huang MD at 23:32 EDT , Echocardiogram 07/17/21 14:26 Interpretation Summary The estimated ejection fraction is 55-60 %. Normal LV systolic function Limited study for LV function evaluation Ordering Physician: Jhon Villatoro Performed By: Akila Owens RDCS
[2021-07-17] MEDS: Cefazolin 2 GM in 0.9% Normal Saline 100 ML IV (15:44)
[2021-07-17] MEDS: TXA 1000mg in NS100 100ml (IVPB at Incision) 660 MG IV (15:45)
[2021-07-17] MEDS: TXA 1000mg in NS100 100ml (IVPB at Closure) 660 MG IV (16:50)
--- NOTE | 2021-07-17 17:29 | OP.PCM_ITS ---
Problems Associated Problem List Diagnoses (1) Fracture of right hip: Operative Report Date of Procedure: 07/17/21 Preoperative diagnosis: Right hip displaced femoral neck fracture Postoperative diagnosis: Same Operation: Right hip cemented hemiarthroplasty Surgeon: Dr. Jenaro Fountain MD Opener Verifier [employer]: Ramos BERMAN Anesthesia: General Anesthesiologist; Dr. Huber EBL: 300 Fluid in: 2 L Special medications: IV [Ancef] 2 gm , IV Tranexamic acid IV x2 Indications for surgery : Patient is a (76) -year-old that fell yesterday fracturing the involved hip. Appropriate informed consent was obtained and signed. Appropriate medical workup was performed preoperatively and patient was deemed safe for surgery by the anesthesia department junior administrative assistant, river was utilized throughout the entire procedure. They were vital in helping with patient positioning, holding of retractors, exposing the tissues adequately for safe completion of the procedure including cutting of the bone, helping plater hot dip appropriate alignment and sizing of the components, implantation of the components, as well as wound closure, bandage application, and safe patient transfer. Without surgical instrument mechanic, physician senior administrative assistant, surgical time would have been significantly increased, and surgical outcome would have been less optimal. Operative findings: Patient had displaced comminuted femoral neck fracture. We used a [place] Accolade C size 6, 127 degrees neck angle and antibiotic cemented. Bipolar 50 mm femoral head with a +4 neck length. Small cement restrictor. Size 13 distal spacer. This reproduced there anatomy nicely. Clinically good leg lengths were noted. Good hip stability through range of motion with no undue pistoning. Standard wound closure in layers, followed by chhaya, followed by Mepilex dressing Details of procedure: Patient was taken to the operating room and transferred to the operating table. Given appropriate anesthetic agent by that department. Patient was then rolled into a lateral decubitus position with the involved painful hip up in the air. Appropriate timeouts had been performed. Hip had been appropriately marked with my initials. Padded anterior and posterior position was utilized. Axillary roll placed. LÓPEZ hose and SCDs on the nonoperative limb utilized throughout the procedure. Operative lower extremity was prepped padded and draped in the usual orthopedic sterile fashion for the procedure. I injected the pain relieving solution in the standard sterile technique of the soft tissues of the hip carefully. Incision was made curving over the tip of the greater trochanter posteriorly. Full thickness skin flaps are raised down on the fascia ceasar. Fascia ceasar was opened in length with our incision. Charnley self-retaining hip retractor was carefully placed by the surgeon. Leg was appropriately rotated by the senior administrative assistant. Retractor was used to lift the abductors anteriorly to visualize the piriformis tendon and external rotators. Piriformis tendon and external rotators released off the greater trochanter with the Bovie. Tagging suture was placed in each of these separately. We then split the tissue superior to the piriformis tendon through capsule and onto the pelvis. Acetabular labrum was preserved. Retractors were carefully placed around the femoral neck. Displaced unstable femoral neck fracture identified. cutting guide was utilized to map out the proposed cut approximately 1 fingerbreadth above the lesser trochanter. This femoral neck cut was carried out with a saw. Fractured femoral head removed from the acetabulum and measured and inspected. Appropriate trial was utilized. A proximal femoral elevator utilized. We used a sharp awl entering down inside the bone of the proximal femur. Utilized the [place] cutting osteotome the proximal lateral greater trochanteric region. The fragment removed. Broaching was then done from the smallest broach, upto the appropriate size. Good stability was confirmed. We then trialed the construct with a standard neck length and appropriate sized femoral head. We were happy with the construct. Good stability to flexion, rotation. At this point trials removed. 2 full batches of antibiotic bone cement were mixed. 2 sponges were placed in the acetabulum we prepared the canal with brushing. Cement restrictor was placed down to the appropriate depth. It was thoroughly irrigated clean and dry. When the cement was as the appropriate texture, we pressurized cement down in the femoral canal. The appropriate size stem then hammered into the proximal femur and seated down to a similar position as the trial had. Excess bone cement removed. Stem was held still while cement fully hardened. Pain relieving solution was injected while this was occurring. The cement was fully hardened, sponges were removed from the acetabulum. We now again trialed and appropriate neck length decided upon. It was then opened. Now impacted the appropriate sized femoral head, neck construct onto the clean dried trunion. Was noted to be stable. Hip was inspected, and joint was reduced for a final time. Good hip stability and leg lengths noted. This was then irrigated with saline, Irrisept, sterile Betadine and cleaned. Aqua Mg used throughout the procedure to help with bleeding. Next the remainder of the pain relieving solution was injected carefully throughout the soft tissues of the hip joint. Closure was carried out with a combination of #1 Vicryl repairing the hip capsule as well as piriformis tendon and external rotators to bone, running #2 strata fix in the fascia ceasar, followed by mid layer #1 Vicryl with #1 strata fix running. Next running 0 strata fix, followed by skin chhaya, Xeroform, Mepilex dressing. We placed LÓPEZ hose and SCD on the operative leg. Patient awoken from the anesthetic and transferred back to room bed in recovery room in satisfactory condition. Patient will be admitted to the hospital. Hospitalist service will continue to manage the medical issues. Hopeful discharge to home in 1 to 2 days 2 g Ancef given IV preoperatively. Plan to use aspirin 81 mg twice a day for DVT prevention. This note was generated with [employer] dictation software. It may contain incor rect words, spelling, and punctuation that were not noted in checking the note before signing.
--- NOTE | 2021-07-17 18:25 | RAD_ITS ---
STUDY: X-RAY - PELVIS AND RIGHT HIP REASON FOR EXAM: Male, 76 years old. Post Op -- AP both hips on single patricio/lateral of op hip PACU TECHNIQUE: XR Hip Unilateral with Pelvis when performed; 2-3 Views COMPARISON: None. FINDINGS: There is no fracture or dislocation. There is anatomic alignment. The soft tissue planes are preserved. Total hip arthroplasty. Skin chhaya are seen along the anterior lateral aspect of the hip. There is an air-fluid level seen in the operative site. Joint space is preserved. Subcutaneous air is noted. RAD/Hip Min 2 Views (Portable) IMPRESSION: Successful total hip arthroplasty. Electronically Signed: Hayden Talbert MD at 19:23 EDT ,
[2021-07-17] MEDS: Topiramate 100 MG Tablet PO (20:25)
[2021-07-17] MEDS: Doxazosin 4 MG Tablet PO (20:26)
[2021-07-17] MEDS: Finasteride 5 MG Tablet PO (20:26)
[2021-07-17] MEDS: Montelukast 10 MG Tablet PO (20:26)
[2021-07-17] MEDS: Atorvastatin Calcium 40 MG Tablet PO (20:26)
[2021-07-17] MEDS: Cefazolin 1 GM/50 ML BAG IV (22:10)
[2021-07-18] VITALS (8 sets, daily range): BP systolic 94–130; BP diastolic 50–77; PULSE 58–71; RESP 18–20; TEMP 36.6–36.8; O2SAT 91–98
[2021-07-18 06:07] LABS: Absolute Lymphocyte Count 1.01 X10^3/uL (0.83-4.51); Absolute Neutrophil Count 9.1 X10^3/uL (2.0-7.7); Basophil# 0.02 X10^3/uL; Basophil% 0.2 % (0-1); Eosinophil# 0.02 X10^3/uL; Eosinophils% 0.2 % (0-5); Hematocrit 30.7 % (40-54); Hemoglobin 9.8 g/dL (13.0-16.5); Lymphocyte # 1.01 X10^3/ul (0.83-4.51); Mean Corp Hgb Conc 31.9 g/dL (32-36); Mean Corpuscular Hgb 28.9 pg (27.0-32.0); Mean Corpuscular Volume 90.6 fL (80-94); Mean Platelet Vol. 10.2 fl (6.2-12.0); Monocyte# 0.97 X10^3/uL; Monocyte% 8.7 % (0-10); NRBC Flagged by Analyzer 0 % (0-5); Neutrophil # 9.13 X10^3/uL (2.7-7.7); Neutrophil % 81.6 % (47-70); Platelet Count 174 K/mm3 (150-450); RBC Distribution Width CV 13.3 % (11.6-14.6); Red Blood Count 3.39 M/mm3 (4.6-6.2); White Blood Count 11.2 K/mm3 (4.4-11.0)
[2021-07-18] MEDS: Cefazolin 1 GM/50 ML BAG IV (06:12)
[2021-07-18 06:26] LABS: Anion Gap 5 (5-15); BUN 22 mg/dL (7-18); BUN/Creat Ratio 22.4 RATIO (10-20); Calcium,Total 8.6 mg/dL (8.5-10.1); Chloride 112 mmol/L (98-107); Creatinine, Serum 0.98 mg/dL (0.70-1.30); EST Glomerular Filtration Rate 79 mL/min (>60); Est Glom Filt Rate - Afr Amer 96 mL/min (>60); Estimated Creatinine Clearance 76.89 ml/min; Glucose 135 mg/dL (74-106); Potassium 4.5 mmol/L (3.5-5.1); Sodium Level 141 mmol/L (136-145)
[2021-07-18] MEDS: Carvedilol 6.25 MG Tablet PO ×2 (08:14→16:45)
[2021-07-18] MEDS: Aspirin 81 MG TAB.CHEW PO ×2 (08:14→16:45)
--- NOTE | 2021-07-18 08:37 | PCM.PN.HOSP ---
Subjective Subjective Was able to work with therapy today. Pain much better overall. Objective Data Objective Data Vital Signs: Vital Signs Temp Pulse Resp BP Pulse Ox 36.6 C 58 L 18 117/77 96 07/18/21 04:09 07/18/21 04:09 07/18/21 04:09 07/18/21 04:09 07/18/21 04:09 Oxygen Flow Rate (L/min) 2 Oxygen Delivery Method Nasal Cannula Weight: 111.4 kg Body Mass Index (BMI) 31.5 Intake & Output: Intake and Output for Last 24 Hours 07/16/21 07/17/21 07/18/21 23:59 23:59 23:59 Intake Total 2255 / 2255 50 / 50 Output Total 350 / 350 Balance 2255 / 2255 -300 / -300 Lab / Micro Data Result Diagrams: 07/18/21 05:32 07/18/21 05:32 Labs: Laboratory Results - last 24 hr 07/17/21 04:10: Hemoglobin A1c 6.5 H 07/18/21 05:32: WBC 11.2 H, RBC 3.39 L, Hgb 9.8 L, Hct 30.7 L, MCV 90.6, MCH 28.9, MCHC 31.9 L, RDW Std Deviation 44.0 H, RDW Coeff of Shay 13.3, Plt Count 174, MPV 10.2, Immature Gran % (Auto) 0.300, Neut % (Auto) 81.6 H, Lymph % (Auto) 9.0 L, [place] % (Auto) 8.7, Eos % (Auto) 0.2, Baso % (Auto) 0.2, Absolute Neuts (auto) 9.1 H, Absolute Lymphs (auto) 1.01, Nucleated RBC % 0 07/18/21 05:32: Sodium 141, Potassium 4.5, Chloride 112 H, Carbon Dioxide 24.0, Anion Gap 5, BUN 22 H, Creatinine 0.98, Estim Creat Clear Calc 76.89, Est GFR (MDRD) Af Amer 96, Est GFR (MDRD) Non-Af 79, BUN/Creatinine Ratio 22.4 H, Glucose 135 H, Calcium 8.6 Radiography Diagnostic Testing: Radiology Impression Echocardiogram 07/17/21 14:26 Interpretation Summary The estimated ejection fraction is 55-60 %. Normal LV systolic function Limited study for LV function evaluation Ordering Physician: Jhon Villatoro Performed By: Akila Owens, [facility] Hip X-Ray 07/17/21 18:25 IMPRESSION: Successful total hip arthroplasty. Electronically Signed: Hayden Talbert MD at 19:23 EDT Reading Location ID and State: [facility] / [place] , Service support , Physical Exam Const alert and no apparent distress Resp normal respiratory effort, no retractions, no use of accessory muscles and clear to auscultation bilaterally Cardio regular rate, regular rhythm, S1 normal heart sound and S2 normal heart sound GI normal to inspection, nondistended, normoactive bowel sounds, soft to palpation and non-tender Extremity normal to inspection Assessment & Plan Assessment/Plan (1) Fracture of right hip: QUALIFIERS: Encounter type: initial encounter Fracture type: closed Qualified Code(s): S72.001A - Fracture of unspecified part of neck of right femur, initial encounter for closed fracture PLAN: 1. Acute comminuted displaced right femoral neck fracture s/p right hip cemented hemiarthoplasty on 07/17 25 [place] d 17.4. Start ergocalciferol 50,000 units weekly continue for total of 8 weeks, therefore, 7 more doses. 2. Elevated creatinine Cr improved 3. Anemia Hemoglobin presentation was 11.4. No previous records to compare with. Trend CBC 4. Hypertension Blood pressure is stable Isosorbide; and losartan. Trend blood pressure and adjust blood pressure medications. 5. CAD 07/17: DW Dr. Hernadez in anesthesia. He will need further information about his cardiac history before he can proceed [facility] [place] Cardiac catheterization report from 09/21/2015 where patient had a Trilling stent placed to the left anterior descending artery. Unfortunately, that is the all of the information that was provided but patient with his present and states that he has been diligent in following up with his retail support specialist and has been stable from a cardiology standpoint to be seen annually instead of twice yearly. I do agree with the admitting hospitalist that I feel the patient is medically stable and optimized to proceed with surgery. I did request additional information from the hospital but have yet to receive that. Nonetheless, I feel the patient is stable from medical standpoint to proceed with surgery. If anesthesia feels additional work-up is necessary from their standpoint, I will defer though I do not feel it is necessary from a medical standpoint. Continue with ASA, carvedilol, isosorbide, losartan 6. DVT prophylaxis BID ASA 7. Disposition: Discussed with case management. The plan is for the patient to be discharged to home, which is in [place], tomorrow. Discussed with the case management who discussed with the patient in therapy. Plan is for the patient to be discharged to home tomorrow after seen physical therapy. I have already discussed with the patient and his about the logistics and emphasized the it would not be an easy trip home given that is about 8 hours away. Charges/Coding Visit Charges Inpatient E&M: 91794 Subs Hosp L2
--- NOTE | 2021-07-18 10:34 | PCM.PN.ORT ---
Subjective Subjective Patient is postoperative day #1 from right hip cemented hemiarthroplasty. He states his pain is currently well controlled. Pain currently 1 out of 10. Feels much better than yesterday at this time. Denies chest pain or shortness of breath. Denies productive cough. Denies calf pain or swelling. Does have history of left foot drop reported. Seen with his present. Objective Data Objective Data Right hip bandages on clean and dry. He has equal leg lengths. He has no calf pain or swelling bilaterally. Negative Homans' sign bilaterally. He has good active motion toes and ankles bilaterally. No obvious significant foot drop noted at either side. Distal pulses are intact. No significant hip pain with rotation on the right or left side. No pain with axial loading of the right hip. Postoperative x-rays reviewed pelvis and right hip showing a cemented hemiarthroplasty in good position without obvious loosening failure or fracture. Vital signs and laboratory work reviewed Case discussed with his nurse Vital Signs: Vital Signs Temp Pulse Resp BP Pulse Ox 98 F 60 18 117/77 95 07/18/21 04:09 07/18/21 08:00 07/18/21 08:00 07/18/21 04:09 07/18/21 08:00 Oxygen Flow Rate (L/min) 2 Oxygen Delivery Method Room Air Weight: 111.4 kg Body Mass Index (BMI) 31.5 Intake & Output: Intake and Output for Last 24 Hours 07/16/21 07/17/21 07/18/21 23:59 23:59 23:59 Intake Total 2255 / 2255 50 / 50 Output Total 350 / 350 Balance 2255 / 2255 -300 / -300 Lab / Micro Data Result Diagrams: 07/18/21 05:32 07/18/21 05:32 Labs: Laboratory Results - last 24 hr 07/17/21 04:10: Hemoglobin A1c 6.5 H 07/18/21 05:32: WBC 11.2 H, RBC 3.39 L, Hgb 9.8 L, Hct 30.7 L, MCV 90.6, MCH 28.9, MCHC 31.9 L, RDW Std Deviation 44.0 H, RDW Coeff of Shay 13.3, Plt Count 174, MPV 10.2, Immature Gran % (Auto) 0.300, Neut % (Auto) 81.6 H, Lymph % (Auto) 9.0 L, [place] % (Auto) 8.7, Eos % (Auto) 0.2, Baso % (Auto) 0.2, Absolute Neuts (auto) 9.1 H, Absolute Lymphs (auto) 1.01, Nucleated RBC % 0 07/18/21 05:32: Sodium 141, Potassium 4.5, Chloride 112 H, Carbon Dioxide 24.0, Anion Gap 5, BUN 22 H, Creatinine 0.98, Estim Creat Clear Calc 76.89, Est GFR (MDRD) Af Amer 96, Est GFR (MDRD) Non-Af 79, BUN/Creatinine Ratio 22.4 H, Glucose 135 H, Calcium 8.6 Radiography Diagnostic Testing: Radiology Impression Echocardiogram 07/17/21 14:26 Interpretation Summary The estimated ejection fraction is 55-60 %. Normal LV systolic function Limited study for LV function evaluation Ordering Physician: Jhon Villatoro Performed By: Akila Owens, [facility] Hip X-Ray 07/17/21 18:25 IMPRESSION: Successful total hip arthroplasty. Electronically Signed: Hayden Talbert MD at 19:23 EDT Reading Location ID and State: [address] [place] [place] [address] , Service support , Assessment & Plan Assessment/Plan (1) Fracture of right hip: QUALIFIERS: Encounter type: initial encounter Fracture type: closed Qualified Code(s): S72.001A - Fracture of unspecified part of neck of right femur, initial encounter for closed fracture PLAN: His diagnosis and treatment options discussed with him and his at length. He can be weightbearing as tolerated. Hip dislocation precautions again explained. He will have therapy. He will continue on aspirin 81 mg twice a day for 1 month. He prefers to use Tylenol for pain. He will try to avoid narcotics. He understands the risk of narcotics. He will follow-up with his primary care physician and an orthopedic surgeon at home in [place]. He will manage his blood sugars trying to keep them well below 200 in the perioperative period. Recommended he follow-up with orthopedics in 2 weeks for evaluation and staple removal. Recommend he follow-up with primary care also regarding bone density testing. Patient does have mild blood loss anemia consistent with his surgical procedure and is asymptomatic and not unexpected Patient orthopedically stable. I will sign off the case. I can be renotified if needed.
[2021-07-18] MEDS: Acetaminophen 325 MG Tablet 650 MG PO ×3 (10:42→23:19)
[2021-07-18] MEDS: Isosorbide Mononitrate 30 MG Tablet PO (10:49)
[2021-07-18] MEDS: Loratadine 10 MG Tablet PO (10:49)
[2021-07-18] MEDS: Magnesium Chloride 64 MG Delay Rel.Tablet 128 MG PO (10:49)
[2021-07-18] MEDS: Losartan Potassium 100 MG Tablet PO (10:49)
[2021-07-18] MEDS: Pantoprazole Sodium 40 MG Tablet PO (10:49)
[2021-07-18] MEDS: Finasteride 5 MG Tablet PO (10:52)
[2021-07-18] MEDS: Topiramate 100 MG Tablet PO (10:52)
--- NOTE | 2021-07-18 11:30 | CASEMGMT ---
YEIMI CHRISTIE updated by shola Mcclelland, that patient can discharge home pending progress with therapy. YEIMI CHRISTIE called therapy and requested patient work with steps and simulate getting in and out of vehicle. YEIMI CHRISTIE in to room to discuss with patient discharge planning. Therapy in room with patient and states was able to ambulate stairs and simulated getting in and out of car. Discussed importance of frequent stops and ambulation on drive back to [place]. Patient and comfortable with discharge home. Will arrange for walker to be delivered today. YEIMI CHRISTIE updated hospitalist regarding plan. Discharge planned for tomorrow morning. Patient and had no further questions or concerns at this time.
[2021-07-18] MEDS: Atorvastatin Calcium 40 MG Tablet PO (20:32)
[2021-07-18] MEDS: Montelukast 10 MG Tablet PO (20:32)
[2021-07-18] MEDS: Doxazosin 4 MG Tablet PO (20:32)
[2021-07-18] MEDS: Mag Hydrox/Al Hydrox/Simeth 30 ML UDC 15 ML PO (23:59)
[2021-07-19] VITALS (10 sets, daily range): BP systolic 86–117; BP diastolic 45–75; PULSE 70–86; RESP 18; TEMP 36.6–37.3; O2SAT 93–99
[2021-07-19] MEDS: oxyCODONE 5 MG Tablet 10 MG PO ×2 (00:15→10:40)
[2021-07-19 05:15] LABS: Hematocrit 26.9 % (40-54); Hemoglobin 8.6 g/dL (13.0-16.5); Mean Corpuscular Hgb 28.4 pg (27.0-32.0); Mean Corpuscular Volume 88.8 fL (80-94); Mean Platelet Vol. 10.5 fl (6.2-12.0); Platelet Count 164 K/mm3 (150-450); RBC Distribution Width CV 13.3 % (11.6-14.6); RBC Distribution Width SD 43.7 fl (35.1-43.9); Red Blood Count 3.03 M/mm3 (4.6-6.2); White Blood Count 10.1 K/mm3 (4.4-11.0)
[2021-07-19] MEDS: Ergocalciferol 1.25 MG (50, 000 UNIT) Capsule PO (09:36)
[2021-07-19] MEDS: Aspirin 81 MG TAB.CHEW PO ×2 (09:36→17:46)
[2021-07-19] MEDS: Loratadine 10 MG Tablet PO (10:47)
[2021-07-19] MEDS: Fluticasone 0.05% 1 SPRAY NASAL.SRY 2 SPRAY NASAL (10:47)
[2021-07-19] MEDS: Finasteride 5 MG Tablet PO (10:49)
[2021-07-19] MEDS: Magnesium Chloride 64 MG Delay Rel.Tablet 128 MG PO (10:49)
[2021-07-19] MEDS: Pantoprazole Sodium 40 MG Tablet PO (10:49)
[2021-07-19] MEDS: Topiramate 100 MG Tablet PO (10:49)
[2021-07-19 11:42] LABS: Hematocrit 28.7 % (40-54); Hemoglobin 9.1 g/dL (13.0-16.5)
--- NOTE | 2021-07-19 13:01 | DS.PCM_ITS ---
Providers Date of Admission: 07/16/21 Primary Care Physician: No Primary Care Phys Consultations 07/17/21 00:51 Consult: Orthopedics Routine Consulting Provider: Jenaro Fountain Reason for Consult: Comminuted fracture of right femoral neck EMERGENT Consult: No MD Notified: Yes Date Notified: 07/16/21 Time Notified: 23:42 Method of Notification: ED Physician Initiated Comments:: Dr Horner spoke with Dr Fountain. See H&P from Dr Horner Reason For Visit: ACUTE COMMINUTED DISPLACED RIGHT FEMORAL NECK FRX Diagnosis Discharge Diagnosis (1) Fracture of right hip: Status: Acute Code(s): S72.001A - Fracture of unspecified part of neck of right femur, initial encounter for closed fracture Qualifiers: Encounter type: initial encounter Fracture type: closed Qualified Code(s): S72.001A - Fracture of unspecified part of neck of right femur, initial encounter for closed fracture Medications at Discharge Home Medications aspirin 81 mg PO DAILY 07/16/21 atorvastatin 40 mg PO QHS 07/16/21 carvedilol 6.25 mg PO BID 07/16/21 doxazosin 4 mg PO QHS 07/16/21 finasteride 5 mg PO DAILY 07/16/21 fluocinonide 1 applic TOPICAL BID 07/16/21 fluticasone propionate 2 spray INTRANASAL DAILY 07/16/21 ibuprofen 200 mg PO Q6H PRN 07/16/21 isosorbide mononitrate 30 mg PO DAILY 07/16/21 loratadine 10 mg PO DAILY 07/16/21 losartan 100 mg PO DAILY 07/16/21 magnesium 400 mg PO DAILY 07/16/21 mecobal-levomefolat Ca-B6 phos 1 tab PO BID 07/16/21 montelukast 10 mg PO QHS 07/16/21 omeprazole 40 mg PO DAILY 07/16/21 topiramate 100 mg PO DAILY 07/16/21 turmeric 2,000 mg PO DAILY 07/16/21 aspirin 81 mg PO BIDCM #0 tab 07/19/21 ergocalciferol (vitamin D2) [Vitamin D2] 1,250 mcg PO Zhao@0800 #7 cap 07/19/21 oxycodone 5 mg PO Q4H PRN PRN 7 Days #42 tab 07/19/21 Hospital Course Operations - (Right total hip arthroplasty) Procedures 2-D Echocardiogram (EF was 55 to 60% and no wall motion abnormality) Summary of Care Provided Minutes Spent on Discharge: 39 Hospital Course: Mr. Whitney is a 76-year-old white male who lives in [place] but was visiting for a [employer] reunion who presented to the emergency department at [facility] on 07/16/2021 after a mechanical fall. The patient indicates he has some mild chronic left foot drop and that his foot got trapped and he fell forward. At that time he hit his chin and had excruciating pain in his right hip following, and pain in his right elbow. In the emergency department right elbow x-rays were performed and negative for any acute fracture. Pelvis and right hip x-rays were performed and showed a right femoral neck fracture. His vital signs were rather unremarkable and his labs showed a normal white count, hemoglobin of 11.4, and normal platelets. His CMP showed normal electrolytes with a slightly elevated serum creatinine 1.42, and elevated glucose at 152 but was otherwise unremarkable. The patient has extensive cardiac history and given that none of his medical care has been here previously an echocardiogram was performed and showed an EF of 55 to 65% without any wall motion abnormality and the patient was cleared for surgery from a cardiac standpoint by cardiology. He was taken to the OR on 11/12/2021 at which time a right hip cemented posterior approach hip arthroplasty was performed by Dr. Jenaro Fountain. Vitamin D level was obtained during his hospitalization and was noted to be quite low at 17 and therefore the patient was started on weekly ergocalciferol at 50,000 units with recommended repeat in 6 weeks. Overnight from 07/18/2021 to 07/19/2021 the patient had some hypotension and orthostatic vitals were done on the a.m. of 07/19/2021 and found to be negative. We did hold his losartan and isosorbide at discharge with 3 instructions to be evaluated up on return home for reinitiation as his blood pressures remained systolic in 100s to 120 range. We did continue his Coreg upon discharge. He is to be weightbearing as tolerated on his right lower extremity. He has posterior hip restrictions and these were reviewed by me and by physical therapy with the patient and his prior to discharge. We discussed the importance of compliance with regards to dislocation. We also reviewed the importance of frequent stops upon discharge while driving home to rule out DVT. Orthopedic surgery has recommended aspirin 81 mg p.o. twice daily for DVT prophylaxis for the next 6 weeks after which time the patient is to return to taking his daily baby aspirin. All of his other medications were continued. He was sent home with prescriptions for ergocalciferol as directed above plus oxycodone for pain relief. His hemoglobin dropped with surgery as expected but stability was documented prior to discharge at hemoglobin of 9.1. His kidney function was normal upon discharge. Patient was discharged to home on 07/19/2021. We did recommend breaking up his trip to prevent DVT formation and for comfort concerns. He is to follow-up with his primary care physician in 1 to 2 weeks and with orthopedic surgery within the next 2 weeks for repeat imaging and incision check. Discharge diagnoses: Right femoral neck fracture status post right hip hemiarthroplasty 07/17/2021 Vitamin D deficiency PAULO-resolved Acute on chronic anemia-stable History of hypertension CAD BPH Seasonal allergies GERD Hyperlipidemia Chronic left foot drop Physical Exam Const alert, oriented x3 and no apparent distress Constitutional Narrative: Obese, older, white male sitting up in bed, present at the bedside during my examination, patient appears comfortable nontoxic, very pleasant and appropriately interactive, therapy at bedside General Appearance: cooperative, comfortable, well kempt and well developed Orientation / Consciousness: awake Exam Limitations: no limitations Nutritional Appearance: obese other (BMI 31.5) HEENT normocephalic, head/scalp atraumatic, hearing grossly normal bilaterally and moist oral mucous membranes HEENT Narrative: Mallampati 3, no thrush Eyes PERRL, EOMs intact bilaterally and conjunctivae normal Eyes Narrative: No scleral icterus Neck no lymphadenopathy, supple and no JVD Neck Narrative: Trachea midline without thyroid enlargement Resp normal respiratory effort, no retractions, no use of accessory muscles and clear to auscultation bilaterally Auscultation: Negative for crackles, rales, rhonchi or wheezes Cardio regular rate, regular rhythm, S1 normal heart sound, S2 normal heart sound, no murmurs, no rub, no gallops, no clicks and no JVD GI normal to inspection, nondistended, normoactive bowel sounds, soft to palpation, non-tender and non-distended Extremity no clubbing, cyanosis or edema Extremity Narrative: LÓPEZ hose in place, dressing intact, clean, dry, polar ice on right hip Skin no rashes or lesions noted, skin turgor normal and no jaundice Skin Narrative: Postoperative wound with bandage in place and no significant drainage Neuro oriented x3 Neuro Narrative: Decreased movement right lower extremity secondary to pain but no focal deficits that appear neurologic other than his baseline foot drop on the left Sensorium / Orientation: awake and alert Psych affect normal Psych Narrative: Appropriately interactive and pleasant Weight / BMI Weight Weight: 111.4 kg Body Mass Index (BMI) 31.5 ABG / Lab / Microbiology Data Result Diagrams: 07/19/21 11:35 07/18/21 05:32 Laboratory: Laboratory Results - last 24 hr 07/19/21 04:55: WBC 10.1, RBC 3.03 L, Hgb 8.6 L, Hct 26.9 L, MCV 88.8, MCH 28.4, MCHC 32.0, RDW Std Deviation 43.7, RDW Coeff of Shay 13.3, Plt Count 164, MPV 10.5 07/19/21 11:35: Hgb 9.1 L, Hct 28.7 L D/C Instructions Discharge Diet: Low fat / Low cholesterol Discharge Activity: May Not Drive and Use Walker (Weightbearing as tolerated right lower extremity) May shower in (days): 5 Weight Bearing Status: Weight bearing as tolerated Keep extremity elevated above heart level: Right Leg Call your doctor if your incision/area has: Continuous Slow Oozing, Sudden Increased Bleeding, Increased Pain/ Swelling, Increased Redness, Foul Smelling Discharge and Swelling at the incision site Call your doctor if you observe: Fever of 101 or Higher Remove Dressing in: 3 days Cleanse incision/area with: Soap & Water and Keep Dressing Clean & Dry Additional Dressing/Incision Instructions: Do not soak surgical incision Meaningful Use Info Meaningful Use Diagnoses (Choose all that apply): None applicable Discharge Plan Admission Admit Date/Time: 07/16/21 23:35 Primary Reason for Your Visit: R Hip Fracture Attending Provider: Dora Mckeon Primary Care Provider: Care Physician,No Primary Consulting Providers: Tim Cox ; Jenrao Fountain ; Wolf Moore Instructions Additional Instructions / Restrictions: 1. Please be cautious to adhere to posterior hip precautions as discussed with you and reviewed with you by physical therapy 2. Please stop every 2 hours upon return home to move around for DVT prevention 3. Continue ankle pumps while in the car during your drive home for DVT prevention 4. Follow-up with your primary care physician for referral to orthopedics after being home as soon as possible 5. Take aspirin 81 mg twice daily for 6 weeks for DVT prophylaxis and then revert back to 81 mg daily Discharge Orders/Prescriptions Prescriptions: New aspirin 81 mg Tablet,Chewable 81 mg PO BIDCM Qty: 0 RF: 0 ergocalciferol (vitamin D2) [Vitamin D2] 1,250 mcg (50,000 unit) Capsule 1,250 mcg PO Zhao@0800 Qty: 7 RF: 0 oxycodone 5 mg Tablet 5 mg PO Q4H PRN PRN (Reason: Pain Score 4-5) 7 Days Qty: 42 RF: 0 Continued atorvastatin 40 mg Tablet 40 mg PO QHS RF: 0 carvedilol 6.25 mg Tablet 6.25 mg PO BID RF: 0 ibuprofen 200 mg Capsule 200 mg PO Q6H PRN (Reason: Pain) RF: 0 omeprazole 40 mg Capsule,Delayed Release(Dr/Ec) 40 mg PO DAILY RF: 0 doxazosin 4 mg Tablet 4 mg PO QHS RF: 0 montelukast 10 mg Tablet 10 mg PO QHS RF: 0 fluocinonide 0.05 % Cream 1 applic TOPICAL BID RF: 0 fluticasone propionate 50 mcg/actuation [place],Suspension 2 spray INTRANASAL DAILY RF: 0 finasteride 5 mg Tablet 5 mg PO DAILY RF: 0 loratadine 10 mg Tablet 10 mg PO DAILY RF: 0 magnesium 200 mg Tablet 400 mg PO DAILY RF: 0 mecobal-levomefolat Ca-B6 phos 3-35-2 mg Tablet 1 tab PO BID RF: 0 topiramate 100 mg Capsule,Extended Release 24hr 100 mg PO DAILY RF: 0 turmeric 400 mg Capsule 2,000 mg PO DAILY RF: 0 Held isosorbide mononitrate 30 mg Tablet Extended Release 24 Hr 30 mg PO DAILY RF: 0 Hold Instructions: Resume on 07/21/21. losartan 100 mg Tablet 100 mg PO DAILY RF: 0 Hold Instructions: please see PCP upon return to [facility] for follow up and BP check for resumption of this medication aspirin 81 mg Capsule 81 mg PO DAILY RF: 0 Hold Instructions: after BID dosing is completed Referrals / Follow Up: Care Physician,No Primary [Primary Care Provider] - Disposition Disposition (needs filled in before D/C Order can be placed): Home, Self Care Charges/Coding Visit Charges Inpatient E&M: 99869 Disch Hosp
--- NOTE | 2021-07-19 14:20 | EKG12_ITS ---
Test Reason : CP Blood Pressure : / mmHG Vent. Rate : 087 BPM Atrial Rate : 087 BPM P-R Int : 162 ms QRS Dur : 088 ms QT Int : 368 ms P-R-T Axes : 019 020 027 degrees QTc Int : 442 ms Sinus rhythm with Premature atrial complexes Otherwise normal ECG When compared with ECG of 16-JUL-2021 22:58, MANUAL COMPARISON REQUIRED, DATA IS UNCONFIRMED Confirmed by KARUNA ZUÑIGA, IDA ([id number]), news editor ANNIA MARTINEZ ([id number]) on 07/20/2021 1:07:57 PM Referred By: CANDACE Confirmed By:IDA BECKMAN MD
--- NOTE | 2021-07-19 14:30 | NURSING ---
1415 Dr Mckeon into see patient to address concerns about going home today. Patient c/o of chest pain. EKG and troponin series ordered. Patient will stay overnight and address discharge in am. Juany Martinez RN
--- NOTE | 2021-07-19 14:42 | PCM.HOSP.N ---
Hospitalist Note Discharge has been completed. Patient in a roundabout way on reexamination expressed that he was having some chest pain. Initially was concerned about his sliding hiatal hernia and then told me he was not getting his home omeprazole. I explained that Protonix was substituted but then he reiterated that Protonix was not as helpful for him. I then asked him if he was having symptoms related to his hiatal hernia and he said yes and there are like his previous cardiac history as well so we therefore held his discharge got a stat EKG which showed no acute ischemic changes and we are cycling his cardiac enzymes. I have discussed with pharmacy using his home omeprazole rather than Protonix utilized here. He also states he was under the impression that he would be pain-free after his hip replacement from his fracture and I discussed that way length with him that that was not the case and this was going to be a longer recovery than he initially thought.
[2021-07-19 15:03] LABS: Troponin-I HS 4 pg/mL (3.0-78.0)
[2021-07-19] MEDS: Mag Hydrox/Al Hydrox/Simeth 30 ML UDC PO (16:12)
--- NOTE | 2021-07-19 16:27 | NURSING ---
1435 EKG done and no acute changes noted, normal EKG. 1st set of Troponin done WNL. DR Mckeon ordered GI cocktail. pt resting in bed. at bedside. Juany Martinez RN
[2021-07-19 17:28] LABS: Troponin-I HS 3 pg/mL (3.0-78.0)
[2021-07-19 20:47] LABS: Troponin-I HS 3 pg/mL (3.0-78.0)
[2021-07-19] MEDS: Montelukast 10 MG Tablet PO (21:03)
[2021-07-19] MEDS: Senna/Docusate Sodium 1 Tablet 2 TABLET PO (21:03)
[2021-07-19] MEDS: Atorvastatin Calcium 40 MG Tablet PO (21:03)
[2021-07-20 03:15] VITALS: BP 117/79; PULSE 79; RESP 18; TEMP 37.3; O2SAT 94
[2021-07-20] MEDS: Acetaminophen 325 MG Tablet 650 MG PO (03:26)
[2021-07-20 04:56] LABS: Hematocrit 27.1 % (40-54); Hemoglobin 8.7 g/dL (13.0-16.5); Mean Corp Hgb Conc 32.1 g/dL (32-36); Mean Corpuscular Hgb 28.7 pg (27.0-32.0); Mean Corpuscular Volume 89.4 fL (80-94); Mean Platelet Vol. 10.1 fl (6.2-12.0); Platelet Count 171 K/mm3 (150-450); RBC Distribution Width CV 13.4 % (11.6-14.6); RBC Distribution Width SD 44.2 fl (35.1-43.9); Red Blood Count 3.03 M/mm3 (4.6-6.2); White Blood Count 10.5 K/mm3 (4.4-11.0)
[2021-07-20 08:17] VITALS: BP 129/74; PULSE 69; RESP 16; TEMP 37.4; O2SAT 96
[2021-07-20] MEDS: oxyCODONE 5 MG Tablet PO (08:22)
--- NOTE | 2021-07-20 09:46 | PCM.PN.ORT ---
Subjective Subjective Patient sitting at bedside in a chair. at his side. Patient denies chest pain, shortness of breath, calf pain, nausea vomiting. Patient has no other complaints, states pain is been well managed. Patient states he is ready for discharge home. Patient will be traveling to [place]. Patient anticipates multiple day drive to take it and swelling commands. Patient advised to risk of DVT. Patient states he will be taking his aspirin as prescribed as well. Objective Data Objective Data Vital Signs: Vital Signs Temp Pulse Resp BP Pulse Ox 99.4 F H 69 16 129/74 H 96 07/20/21 08:17 07/20/21 08:17 07/20/21 08:17 07/20/21 08:17 07/20/21 08:17 Oxygen Flow Rate (L/min) 2 Oxygen Delivery Method Room Air Weight: 111.4 kg Body Mass Index (BMI) 31.5 Intake & Output: Intake and Output for Last 24 Hours 07/18/21 07/19/21 07/20/21 23:59 23:59 23:59 Intake Total 1014 / 1014 960 / 960 Output Total 950 / 950 Balance 64 / 64 960 / 960 Lab / Micro Data Result Diagrams: 07/20/21 04:30 07/18/21 05:32 Labs: Laboratory Results - last 24 hr 07/19/21 11:35: Hgb 9.1 L, Hct 28.7 L 07/19/21 14:35: Troponin I High Sens 4 07/19/21 16:30: Troponin I High Sens 3 07/19/21 20:13: Troponin I High Sens 3 07/20/21 04:30: WBC 10.5, RBC 3.03 L, Hgb 8.7 L, Hct 27.1 L, MCV 89.4, MCH 28.7, MCHC 32.1, RDW Std Deviation 44.2 H, RDW Coeff of Shay 13.4, Plt Count 171, MPV 10.1 Physical Exam Const alert and oriented x3 General Appearance: cooperative HEENT Head and Scalp: atraumatic Eyes PERRL Neuro CN's II-XII intact bilaterally Psych mental status grossly normal and affect normal Assessment & Plan Assessment/Plan (1) Fracture of right hip: QUALIFIERS: Encounter type: initial encounter Fracture type: closed Qualified Code(s): S72.001A - Fracture of unspecified part of neck of right femur, initial encounter for closed fracture (2) History of right hip hemiarthroplasty: PLAN: 1. Continue all pain medications as prescribed 2. Aspirin 81 mg 1 p.o. every 12 hours x30 days for postop DVT prophylaxis 3. Continue ice to surgical area 4. Encourage incentive spirometry 5. Change dressing in 3 days. 6. Continue ambulate weight-bear as tolerated with walker 7. Patient and were both instructed in detail on cautionary procedures to help prevent postop DVT while traveling a long distance returning to [place]. 8. Lissett to be removed in 2 weeks. 9. Patient is begin physical therapy when returning home. 10. Discharge home when cleared with medicine
[2021-07-20] MEDS: Loratadine 10 MG Tablet PO (10:02)
[2021-07-20] MEDS: Carvedilol 6.25 MG Tablet PO (10:02)
[2021-07-20] MEDS: Fluticasone 0.05% 1 SPRAY NASAL.SRY 2 SPRAY NASAL (10:02)
[2021-07-20] MEDS: Aspirin 81 MG TAB.CHEW PO (10:02)
[2021-07-20] MEDS: Magnesium Chloride 64 MG Delay Rel.Tablet 128 MG PO (10:02)
--- NOTE | 2021-07-20 10:18 | DS.PCM_ITS ---
Providers Date of Admission: 07/16/21 Primary Care Physician: No Primary Care Phys Consultations 07/17/21 00:51 Consult: Orthopedics Routine Consulting Provider: Jenaro Fountain Reason for Consult: Comminuted fracture of right femoral neck EMERGENT Consult: No MD Notified: Yes Date Notified: 07/16/21 Time Notified: 23:42 Method of Notification: ED Physician Initiated Comments:: Dr Horner spoke with Dr Fountain. See H&P from Dr Horner Reason For Visit: ACUTE COMMINUTED DISPLACED RIGHT FEMORAL NECK FRX Diagnosis Discharge Diagnosis (1) Fracture of right hip: Status: Acute Code(s): S72.001A - Fracture of unspecified part of neck of right femur, initial encounter for closed fracture Qualifiers: Encounter type: initial encounter Fracture type: closed Qualified Code(s): S72.001A - Fracture of unspecified part of neck of right femur, initial encounter for closed fracture (2) History of right hip hemiarthroplasty: Status: Acute Code(s): Z96.641 - Presence of right artificial hip joint Medications at Discharge Home Medications aspirin 81 mg PO DAILY 07/16/21 atorvastatin 40 mg PO QHS 07/16/21 carvedilol 6.25 mg PO BID 07/16/21 doxazosin 4 mg PO QHS 07/16/21 finasteride 5 mg PO DAILY 07/16/21 fluocinonide 1 applic TOPICAL BID 07/16/21 fluticasone propionate 2 spray INTRANASAL DAILY 07/16/21 ibuprofen 200 mg PO Q6H PRN 07/16/21 isosorbide mononitrate 30 mg PO DAILY 07/16/21 loratadine 10 mg PO DAILY 07/16/21 losartan 100 mg PO DAILY 07/16/21 magnesium 400 mg PO DAILY 07/16/21 mecobal-levomefolat Ca-B6 phos 1 tab PO BID 07/16/21 montelukast 10 mg PO QHS 07/16/21 omeprazole 40 mg PO DAILY 07/16/21 topiramate 100 mg PO DAILY 07/16/21 turmeric 2,000 mg PO DAILY 07/16/21 aspirin 81 mg PO BIDCM #0 tab 07/19/21 ergocalciferol (vitamin D2) [Vitamin D2] 1,250 mcg PO Zhao@0800 #7 cap 07/19/21 oxycodone 5 mg PO Q4H PRN PRN 7 Days #42 tab 07/19/21 Hospital Course Operations - (right total hip arthroplasty) Procedures None Summary of Care Provided Minutes Spent on Discharge: 45 Hospital Course: Mr. Whitney is a 76-year-old male who lives in [facility]. He presented to the emergency department at [facility] on 07/16/2021 after a mechanical fall. The patient indicates he has some mild chronic left foot drop and that his foot got trapped and he fell forward. At that time he hit his chin and had excruciating pain in his right hip following, and pain in his right elbow. In the emergency department right elbow x-rays were performed and negative for any acute fracture. Pelvis and right hip x-rays were performed and showed a right femoral neck fracture. His vital signs were rather unremarkable and his labs showed a normal white count, hemoglobin of 11.4, and normal platelets. His CMP showed normal electrolytes with a slightly elevated serum creatinine 1.42, and elevated glucose at 152 but was otherwise unremarkable. The patient has extensive cardiac history and given that none of his medical care has been here previously an echocardiogram was performed and showed an EF of 55 to 65% without any wall motion abnormality and the patient was cleared for surgery from a cardiac standpoint by cardiology. He was taken to the OR on 11/12/2021 at which time a right hip cemented posterior approach hip arthroplasty was performed by Dr. Jenaro Fountain. Vitamin D level was obtained during his hospitalization and was noted to be quite low at 17 and therefore the patient was started on weekly ergocalciferol at 50,000 units with recommended repeat in 6 weeks. Overnight from 07/18/2021 to 07/19/2021 the patient had some hypotension and orthostatic vitals were done on the a.m. of 07/19/2021 and found to be negative. We did hold his losartan and isosorbide at discharge with 3 instructions to be evaluated upon return home for reinitiation as his blood pressures remained systolic in 100s to 120 range. We did continue his Coreg upon discharge. He is to be weightbearing as tolerated on his right lower extremity. He has posterior hip restrictions and these were reviewed with and the patient and his prior to discharge. Patient counseled about the importance of frequent stops upon discharge while driving home to rule out DVT. Orthopedic surgery has recommended aspirin 81 mg p.o. twice daily for DVT prophylaxis for the next 6 weeks after which time the patient is to return to taking his daily baby aspirin. All of his other medications were continued. He was sent home with prescriptions for ergocalciferol as directed above plus oxycodone for pain relief. His hemoglobin dropped with surgery as expected but stability was documented prior to discharge at hemoglobin of 8.7. His kidney function was normal upon discharge. Patient was discharged to home on . He was counseled breaking up his trip to prevent DVT formation and for comfort concerns. He is to follow-up with his primary care physician in 1 to 2 weeks and with orthopedic surgery within the next 2 weeks for repeat imaging and incision check. Patient was seen and examined prior to discharge. He felt well and had no active complaints. He had an uneventful night. His discharge on 07/19/2021 had been canceled because he had developed some reflux symptoms which she said was because his omeprazole had been substituted with pantoprazole, which did not usually work for him. There was concern that this could be chest pain so he had troponin series done which were all negative. His symptoms are completely resolved and he felt well and wanted to be discharged home. was by his bedside. Review of systems otherwise negative. Pain was well controlled. Physical Exam Const alert, oriented x3 and no apparent distress General Appearance: cooperative, comfortable, well kempt and well developed Orientation / Consciousness: awake Exam Limitations: no limitations Nutritional Appearance: cachectic and obese other (BMI 31.5) HEENT normocephalic, head/scalp atraumatic, hearing grossly normal bilaterally and moist oral mucous membranes Eyes PERRL, EOMs intact bilaterally and conjunctivae normal Neck no lymphadenopathy, supple and no JVD Resp normal respiratory effort, no retractions, no use of accessory muscles and clear to auscultation bilaterally Auscultation: Negative for crackles, rales, rhonchi or wheezes Cardio regular rate, regular rhythm, S1 normal heart sound, S2 normal heart sound, no murmurs, no rub, no gallops, no clicks and no JVD GI normal to inspection, nondistended, normoactive bowel sounds, soft to palpation, non-tender and non-distended Extremity normal to inspection and no clubbing, cyanosis or edema Skin no rashes or lesions noted, skin turgor normal and no jaundice Neuro oriented x3 Sensorium / Orientation: awake and alert Psych affect normal Weight / BMI Weight Weight: 245 lb 9.519 oz Body Mass Index (BMI) 31.5 ABG / Lab / Microbiology Data Result Diagrams: 07/20/21 04:30 07/18/21 05:32 Laboratory: Laboratory Results - last 24 hr 07/19/21 11:35: Hgb 9.1 L, Hct 28.7 L 07/19/21 14:35: Troponin I High Sens 4 07/19/21 16:30: Troponin I High Sens 3 07/19/21 20:13: Troponin I High Sens 3 07/20/21 04:30: WBC 10.5, RBC 3.03 L, Hgb 8.7 L, Hct 27.1 L, MCV 89.4, MCH 28.7, MCHC 32.1, RDW Std Deviation 44.2 H, RDW Coeff of Shay 13.4, Plt Count 171, MPV 10.1 D/C Instructions Discharge Diet: Low fat / Low cholesterol May shower in (days): 5 Weight Bearing Status: Weight bearing as tolerated Keep extremity elevated above heart level: Right Leg Call your doctor if your incision/area has: Continuous Slow Oozing, Sudden Increased Bleeding, Increased Pain/ Swelling, Increased Redness, Foul Smelling Discharge and Swelling at the incision site Call your doctor if you observe: Fever of 101 or Higher Cleanse incision/area with: Soap & Water and Keep Dressing Clean & Dry Additional Dressing/Incision Instructions: Do not soak surgical incision Meaningful Use Info Meaningful Use Diagnoses (Choose all that apply): None applicable Discharge Plan Admission Admit Date/Time: 07/16/21 23:35 Primary Reason for Your Visit: R Hip Fracture Attending Provider: Jaci Avitia Primary Care Provider: Care Physician,No Primary Consulting Providers: Tim Cox ; Jenaro Fountain ; Wolf Moore ; Dora Bajwa Instructions Additional Instructions / Restrictions: 1. Please be cautious to adhere to posterior hip precautions as discussed with you and reviewed with you by physical therapy 2. Please stop every 2 hours upon return home to move around for DVT prevention 3. Continue ankle pumps while in the car during your drive home for DVT prevention 4. Follow-up with your primary care physician for referral to orthopedics after being home as soon as possible 5. Take aspirin 81 mg twice daily for 6 weeks for DVT prophylaxis and then revert back to 81 mg daily Discharge Orders/Prescriptions Prescriptions: New aspirin 81 mg Tablet,Chewable 81 mg PO BIDCM Qty: 0 RF: 0 ergocalciferol (vitamin D2) [Vitamin D2] 1,250 mcg (50,000 unit) Capsule 1,250 mcg PO Zhao@0800 Qty: 7 RF: 0 oxycodone 5 mg Tablet 5 mg PO Q4H PRN PRN (Reason: Pain Score 4-5) 7 Days Qty: 42 RF: 0 Continued atorvastatin 40 mg Tablet 40 mg PO QHS RF: 0 carvedilol 6.25 mg Tablet 6.25 mg PO BID RF: 0 ibuprofen 200 mg Capsule 200 mg PO Q6H PRN (Reason: Pain) RF: 0 omeprazole 40 mg Capsule,Delayed Release(Dr/Ec) 40 mg PO DAILY RF: 0 doxazosin 4 mg Tablet 4 mg PO QHS RF: 0 montelukast 10 mg Tablet 10 mg PO QHS RF: 0 fluocinonide 0.05 % Cream 1 applic TOPICAL BID RF: 0 fluticasone propionate 50 mcg/actuation [place],Suspension 2 spray INTRANASAL DAILY RF: 0 finasteride 5 mg Tablet 5 mg PO DAILY RF: 0 loratadine 10 mg Tablet 10 mg PO DAILY RF: 0 magnesium 200 mg Tablet 400 mg PO DAILY RF: 0 mecobal-levomefolat Ca-B6 phos 3-35-2 mg Tablet 1 tab PO BID RF: 0 topiramate 100 mg Capsule,Extended Release 24hr 100 mg PO DAILY RF: 0 turmeric 400 mg Capsule 2,000 mg PO DAILY RF: 0 Held isosorbide mononitrate 30 mg Tablet Extended Release 24 Hr 30 mg PO DAILY RF: 0 Hold Instructions: Resume on 07/21/21. losartan 100 mg Tablet 100 mg PO DAILY RF: 0 Hold Instructions: please see PCP upon return to [facility] for follow up and BP check for resumption of this medication aspirin 81 mg Capsule 81 mg PO DAILY RF: 0 Hold Instructions: after BID dosing is completed Referrals / Follow Up: Care Physician,No Primary [Primary Care Provider] - Disposition Disposition (needs filled in before D/C Order can be placed): Home, Self Care Charges/Coding Visit Charges Inpatient E&M: 26155 Disch Hosp
--- NOTE | 2021-07-20 10:21 | CASEMGMT ---
YEIMI CM in to pt room, pt at bedside, pt sitting up in chair. Pt plans to dc home today with a multiple day trip back to [place]. Pt/ are aware of precautions to take per their verbal report. Pt has FWW in the room that was delivered on Tuesday with other items such as dog breeder, etc. Pt reports she has been in contact with pt PCP and PCP is up to date on pt condition and she will make appt for when they return. She states as well as pt, that PCP will write for outpt therapy to start and they are well aware that this is necessary. Pt/ deny further needs at this time.
[2021-07-20 10:37] VITALS: BP 125/73; PULSE 74; RESP 16; TEMP 37.5; O2SAT 96
[2021-07-20] MEDS: Isosorbide Mononitrate 30 MG Tablet PO (10:38)
[2021-07-20] MEDS: Losartan Potassium 100 MG Tablet PO (10:39)
[2021-07-20] MEDS: Finasteride 5 MG Tablet PO (10:39)
[2021-07-20] MEDS: OMEPRAZOLE 40 MG CAPSULE.DR PO (10:39)
[2021-07-20] MEDS: Topiramate 100 MG Tablet PO (10:39)
--- NOTE | 2021-07-20 11:45 | PHA.DC.MC ---
Pharmacy Service has performed discharge medication reconciliation and counseling for this patient. 1. ERGOCALCIFEROL [id number] PO WEEKLY 2. OXYCODONE 5MG PO Q4H PRN PAIN The patient's discharge medication list was reviewed for discrepancies and discrepancies were resolved. Home Medications aspirin 81 mg PO DAILY 07/16/21 atorvastatin 40 mg PO QHS 07/16/21 carvedilol 6.25 mg PO BID 07/16/21 doxazosin 4 mg PO QHS 07/16/21 finasteride 5 mg PO DAILY 07/16/21 fluocinonide 1 applic TOPICAL BID 07/16/21 fluticasone propionate 2 spray INTRANASAL DAILY 07/16/21 ibuprofen 200 mg PO Q6H PRN 07/16/21 isosorbide mononitrate 30 mg PO DAILY 07/16/21 loratadine 10 mg PO DAILY 07/16/21 losartan 100 mg PO DAILY 07/16/21 magnesium 400 mg PO DAILY 07/16/21 mecobal-levomefolat Ca-B6 phos 1 tab PO BID 07/16/21 montelukast 10 mg PO QHS 07/16/21 omeprazole 40 mg PO DAILY 07/16/21 topiramate 100 mg PO DAILY 07/16/21 turmeric 2,000 mg PO DAILY 07/16/21 aspirin 81 mg PO BIDCM #0 tab 07/19/21 ergocalciferol (vitamin D2) [Vitamin D2] 1,250 mcg PO Zhao@0800 #7 cap 07/19/21 oxycodone 5 mg PO Q4H PRN PRN 7 Days #42 tab 07/19/21 The patient was counseled on the following discharge medications and changes in medications for homegoing were reviewed. The Reason for Use, instructions for use, and potential side effects were reviewed for all new medications. The patient's questions regarding all of their medications were answered. The patient was able to verbally demonstrate an understanding of their discharge medications.
== END 2021-07-20 12:24 | disposition home or self-care (01) | DRG 522 ==
LOC: ED 23:48 → MS3 07-17 00:06
PROVIDERS: Anesthesiology; Internal Medicine; Orthopaedic Surgery; Admitting Provider Hospitalist; Emergency Provider Emergency Medicine; Visit Provider Student in an Organized Health Care Education/Training Program
PROC: 0SRR0J9 Replacement of Right Hip Joint, Femoral Surface with Synthetic Substitute, Cemented, Open Approach (ICD-10-PCS; CPT 27125; principal; 2021-07-17 15:10)
DX: S72.001A Fracture of unspecified part of neck of right femur, initial encounter for closed fracture (principal); D62 Acute posthemorrhagic anemia; N17.9 Acute kidney failure, unspecified; E11.65 Type 2 diabetes mellitus with hyperglycemia; E55.9 Vitamin D deficiency, unspecified; E78.00 Pure hypercholesterolemia, unspecified; E78.5 Hyperlipidemia, unspecified; I25.10 Atherosclerotic heart disease of native coronary artery without angina pectoris; W10.9XXA Fall (on) (from) unspecified stairs and steps, initial encounter; I10 Essential (primary) hypertension; K21.9 Gastro-esophageal reflux disease without esophagitis; K44.9 Diaphragmatic hernia without obstruction or gangrene; I25.2 Old myocardial infarction; J45.909 Unspecified asthma, uncomplicated; M21.372 Foot drop, left foot; R07.9 Chest pain, unspecified; Z79.82 Long term (current) use of aspirin; Z87.891 Personal history of nicotine dependence; Z79.899 Other long term (current) drug therapy; Z95.5 Presence of coronary angioplasty implant and graft
CPT/HCPCS: 36415; 73080; 73502; 80048; 82306; 83036; 84484; 85014; 85018; 85025; 85027; 86850; 86900; 86901; 88305; 88311; 93005; 93308; 97110; 97116; 97162; 97165; 97530; 97535; 99251; 99285; C1776; J7030; J7120; A4216; G0463; J2405